=== PATIENT | male | born 1965 | race Caucasian/White ===

== ENCOUNTER 2017-11-02 11:06 | Emergency (ER) | payer OTHER ==
[2017-11-02] MEDS ORDERED: KETOROLAC 30 MG/ML INJ ONE (12:32)
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
--- NOTE | 2017-11-02 13:05 | EDPHYS ---
Physician Documentation [facility] Name: Michael Soria Age: 52 yrs Sex: Male : 1965 Arrival Date: 11/02/2017 Time: 11:12 Bed 12 Private MD: None, None ED Physician Salinas Bowman HPI: 11/02 12:12 This 52 yrs old Male presents to ER via Ambulatory with complaints of Rib snw Pain. 12:12 Onset: The symptoms/episode began/occurred suddenly, 3 week(s) ago, and became snw persistent. Associated signs and symptoms: Pertinent positives: chest pain. The patient has not experienced similar symptoms in the past. pt seen one day post injury at [facility]. Given Trammadol/Incentive spirometer. Pt states x-rays were negative. States he is out of pain medications. Historical: - Allergies: 11:15 No Known Allergies; aa5 - PMHx: 11:15 None; aa5 - PSHx: 11:15 Brain tumor removed; aa5 - Immunization history:: Adult Immunizations unknown. - Social history:: Smoking status: Patient/guardian denies using tobacco. - Ebola Screening: : No symptoms or risks identified at this time. ROS: 12:12 Constitutional: Negative for fever, chills, and weight loss, Eyes: Negative for injury, snw pain, redness, and discharge, ENT: Negative for injury, pain, and discharge, Neck: Negative for injury, pain, and swelling, Cardiovascular: Negative for chest pain, palpitations, and edema, Abdomen/GI: Negative for abdominal pain, nausea, vomiting, diarrhea, and constipation, Back: Negative for injury and pain, : Negative for injury, bleeding, discharge, and swelling, MS/Extremity: Negative for injury and deformity, Skin: Negative for injury, rash, and discoloration, Neuro: Negative for headache, weakness, numbness, tingling, and seizure. 12:12 Respiratory: Positive for pleurisy, of the right lateral posterior chest. Exam: 12:11 Constitutional: This is a well developed, well nourished patient who is awake, alert, snw and in no acute distress. Head/Face: Normocephalic, atraumatic. Eyes: Pupils equal round and reactive to light, extra-ocular motions intact. Lids and lashes normal. Conjunctiva and sclera are non-icteric and not injected. Cornea within normal limits. Periorbital areas with no swelling, redness, or edema. ENT: Nares patent. No nasal discharge, no septal abnormalities noted. Tympanic membranes are normal and external auditory canals are clear. Oropharynx with no redness, swelling, or masses, exudates, or evidence of obstruction, uvula midline. Mucous membranes moist. Neck: Trachea midline, no thyromegaly or masses palpated, and no cervical lymphadenopathy. Supple, full range of motion without nuchal rigidity, or vertebral point tenderness. No Meningismus. Cardiovascular: Regular rate and rhythm with a normal S1 and S2. No gallops, murmurs, or rubs. Normal PMI, no JVD. No pulse deficits. Respiratory: Lungs have equal breath sounds bilaterally, clear to auscultation and percussion. No rales, rhonchi or wheezes noted. No increased work of breathing, no retractions or nasal flaring. Abdomen/GI: Soft, non-tender, with normal bowel sounds. No distension or tympany. No guarding or rebound. No evidence of tenderness throughout. Back: No spinal tenderness. No costovertebral tenderness. Full range of motion. Skin: Warm, dry with normal turgor. Normal color with no rashes, no lesions, and no evidence of cellulitis. MS/ Extremity: Pulses equal, no cyanosis. Neurovascular intact. Full, normal range of motion. Neuro: Awake and alert, GCS 15, oriented to person, place, time, and situation. Cranial nerves II-XII grossly intact. Motor strength 5/5 in all extremities. Sensory grossly intact. Cerebellar exam normal. Normal gait. Psych: Awake, alert, with orientation to person, place and time. Behavior, mood, and affect are within normal limits. 12:11 Chest/axilla: Inspection: normal, Palpation: crepitus, is not appreciated, tenderness, that is moderate, of the right lateral posterior chest. Vital Signs: 11:15 BP 128 / 86; Pulse 75; Resp 16 S; Temp 99.0(TE); Pulse Ox 100% on R/A; Weight 68.04 kg aa5 (R); Height 5 ft. 6 in. (167.64 cm) (R); Pain 2/10; 11:15 Body Mass Index 24.21 (68.04 kg, 167.64 cm) aa5 MDM: 11:42 Patient medically screened. snw 13:05 Data reviewed: vital signs, nurses notes. Data interpreted: Pulse oximetry: on room air snw is 100 %. Interpretation: normal. Counseling: I had a detailed discussion with the patient and/or guardian regarding: the historical points, exam findings, and any diagnostic results supporting the discharge/admit diagnosis, the presence of at least one elevated blood pressure reading (>120/80) during this emergency department visit, radiology results, the need for outpatient follow up, for definitive care, to return to the emergency department if symptoms worsen or persist or if there are any questions or concerns that arise at home. Special discussion: Based on the history and exam findings, there is no indication for further emergent testing or inpatient evaluation. I discussed with the patient/guardian the need to see the primary care provider for further evaluation of the symptoms. 11/02 11:43 Order name: Chest Pa And Lat (2 Views) XRAY; Complete Time: 13:11 snw Administered Medications: 12:32 Drug: TORadol 60 mg Route: IM; Site: right gluteus; dm5 Disposition: 11/03 12:05 Co-signature as Attending Physician, Salinas Bowman MD I agree with the assessment and damaris plan of care. Disposition: 11/02/17 13:04 Discharged to Home. Impression: Contusion of right back wall of thorax. - Condition is Stable. - Discharge Instructions: Rib Contusion. - Prescriptions for Ultram 50 mg Oral Tablet - take 1 tablet by ORAL route every 8 hours As needed; 15 tablet. - Medication Reconciliation Form, Thank You Letter, Antibiotic Education, Prescription Opioid Use form. - Follow up: Emergency Department; When: 2 - 3 days; Reason: Recheck today's complaints, Continuance of care, Re-evaluation by your physician. Follow up: Private Physician; When: 2 - 3 days; Reason: Recheck today's complaints, Continuance of care, Re-evaluation by your physician. Signatures: Dispatcher [employer] Jania Campbell, RN RN dm5 Salinas Bowman MD MD cha Therrien, Shelly, RESIDENT CARE AIDE-C RESIDENT CARE AIDE-Csnw Ping Fiore, RN RN aa5 Corrections: (The following items were deleted from the chart) 11/02 13:25 13:04 11/02/2017 13:04 Discharged to Home. Impression: Contusion of right back wall of dm5 thorax. Condition is Stable. Forms are Medication Reconciliation Form, Thank You Letter, Antibiotic Education, Prescription Opioid Use. Follow up: Emergency Department; When: 2 - 3 days; Reason: Recheck today's complaints, Continuance of care, Re-evaluation by your physician. Follow up: Private Physician; When: 2 - 3 days; Reason: Recheck today's complaints, Continuance of care, Re-evaluation by your physician. snw
--- NOTE | 2017-11-02 13:08 | RAD REPORT ---
EXAM DESCRIPTION: Esequiel Garcia (2 Views)11/02/2017 1:02 pm CLINICAL HISTORY: Chest pain COMPARISON: 2012 FINDINGS: The lungs appear clear of acute infiltrate. The heart is normal size IMPRESSION: No acute abnormalities displayed
[2017-11-02 14:36] VITALS: BP 128/86; TEMP 99; O2SAT 100
== END 2017-11-02 13:25 | disposition home or self-care (01) ==
LOC: ER 11:06
DX: S20.221A Contusion of right back wall of thorax, initial encounter (principal); X58.XXXA Exposure to other specified factors, initial encounter; Y93.9 Activity, unspecified; Y92.89 Other specified places as the place of occurrence of the external cause
CPT/HCPCS: 71046; 96372; 99283

== ENCOUNTER 2019-12-31 13:51 | Emergency (ER) | payer OTHER ==
--- OUTSIDE RECORDS SUMMARY | 2019-12-31 13:53 | XMS REPORT | Continuity of Care Document ---
:1965 Author Organization [facility] Care Team Providers Name Role Phone [facility] Unavailable Un available Problems Problem Status Onset Classification Date Comments Sourc e Date Reported Major depressive Active Problem 02/27/2018 eC W: disorder, single Srinivas twood episode, unspecified Primary Care Primary insomnia Active Problem 02/27/2018 eC W: [facility] Glioblastoma Active Problem 02/27/2018 eCW: multiforme [facility] Multiple falls Active Problem 02/27/2018 eCW: [facility] Other chronic pain Active Problem 02/27/2018 eCW: [facility] Low back pain Active Problem 02/27/2018 eCW: [facility] Chronic pain syndrome Active Problem 02/27/2018 eCW: [facility] Chronic insomnia Active Problem 02/27/2018 eC W: [facility] Psychophysiological Active Problem 02/27/2018 eCW: insomnia [facility] Bipolar depression Active Problem 02/27/2018 eCW: [facility] B12 deficiency Active Problem 02/27/2018 eCW: [facility] Moderate major Active Problem 02/27/2018 eCW: depression [facility] Chronic fatigue Active Problem 02/27/2018 eCW : [facility] DDD (degenerative disc Active Problem 02/27/2018 eCW: disease), cervical [facility] Primary [facility] [place] Medications Medication Details Route Status Patient Ordering Order Source Instructions Provider Date meloxicam 1 tab(s) orally Active 15 mg orally [place] eCW: once a day 018 [facility] Sertraline 3 tab(s) orally Active 50 mg orally [place] eCW: Hydrochloride once a day 018 [facility] aripiprazole 1 tab(s) orally Active 5 mg orally [place] eCW: once a day 018 [facility] Abilify 1 tab(s) orally Active 5 mg orally [place] eCW: once a day 017 [facility] Sertraline 1 tab orally Active 100 mg orally [place] eCW: Hydrochloride once a day 017 [facility] d Primary [facility] [place] tramadol 2 tab orally Active 50 mg orally [place] eCW: BID [place] Primary [facility] [place] trazodone 1 tab(s) orally Active 50 mg orally [place] eCW: once at night [facility] Allergies, Adverse Reactions, Alerts Substance Category Reaction Severity Reaction Status Date Comments S ource type Reported Cymbalta Adverse stomach Adverse Active eCW: Reaction upset Reaction 8 [facility] aripiprazole Adverse dizziness Adverse Active eCW: Reaction Reaction 8 [facility] Primary [facility] Immunizations No Data Provided for This Section Results No Data Provided for This Section Pathology Reports No Data Provided for This Section Diagnostic Reports No Data Provided for This Section Consultation Notes No Data Provided for This Section Discharge Summaries No Data Provided for This Section History and Physicals No Data Provided for This Section Vital Signs Vital Sign Value Date Comments Source Systolic (mm Hg) 120 07/31/2017 eCW: [facility] Heart Rate 72 07/31/2017 eCW: [place] [facility] Temperature Oral (F) 98.7 F 07/31/2017 eCW: [facility] Weight 145.4 07/31/2017 eCW: [place] [facility] Height 66 07/31/2017 eCW: [place] [facility] Diastolic (mm Hg) 87 07/31/2017 eCW: [facility] Systolic (mm Hg) 124 07/01/2017 eCW: [facility] Heart Rate 70 07/01/2017 eCW: [place] [facility] Temperature Oral (F) 98.5 F 07/01/2017 eCW: [facility] Weight 149.1 07/01/2017 eCW: [place] [facility] Height 66 07/01/2017 eCW: [place] [facility] Diastolic (mm Hg) 88 07/01/2017 eCW: [facility] Systolic (mm Hg) 123 04/01/2017 eCW: [facility] Primary Care Heart Rate 71 04/01/2017 eCW: [place] [facility] Temperature Oral (F) 98.3 F 04/01/2017 eCW: [facility] Primary Care Weight 155.8 04/01/2017 eCW: [place] [facility] Height 66 04/01/2017 eCW: [facility] Diastolic (mm Hg) 83 04/01/2017 eCW: [facility] Encounters No Data Provided for This Section Procedures No Data Provided for This Section Assessment and Plan No Data Provided for This Section Plan of Care No Data Provided for This Section Social History No Data Provided for This Section Family History No Data Provided for This Section Advance Directives No Data Provided for This Section Functional Status No Data Provided for This Section
--- OUTSIDE RECORDS SUMMARY | 2019-12-31 13:53 | XMS REPORT | Continuity of Care Document ---
:1965 Author Organization [facility] t Address [address] [place] [address] Care Team Providers Name Role Phone 1, Lab Attending Clinician Unavailable Problems Condition Condition Condition Status Onset Resolution Last Treating Co mments Source Name Details Category Date Date Treatment Clinician Date Major Problem Active 2018-02-27 Memor ia depressive 03:45:52 l disorder, Major Clay n single depressive episode, disorder, unspecifie single d episode, unspecifie d Active Problem 02/27/2018 eCW: [facility] Primary Problem Active 2018-02-27 Nikhil julian insomnia 03:45:52 l Primary [place] insomnia Active Problem 02/27/2018 eCW: [facility] Glioblasto Problem Active 2018-02-27 M alyssa ma 03:45:52 l multiforme [place] [facility] Glioblasto ma multiforme Active Problem 02/27/2018 eCW: [facility] Multiple Problem Active 2018-02-27 Mem oria falls 03:45:52 l Multiple [place] n falls Active Problem 02/27/2018 eCW: [facility] Other Problem Active 2018-02-27 Memor ia chronic 03:45:52 l pain Other [facility] chronic pain Active Problem 02/27/2018 eCW: [facility] Low back Problem Active 2018-02-27 Mem oria pain 03:45:52 l Low back Clay n pain Active Problem 02/27/2018 eCW: [facility] Chronic Problem Active 2018-02-27 Nikhil julian pain 03:45:52 l syndrome Chronic Radha nn pain syndrome Active Problem 02/27/2018 eCW: [facility] Chronic Problem Active 2018-02-27 Nikhil julian insomnia 03:45:52 l Chronic J[place] insomnia Active Problem 02/27/2018 eCW: [facility] Bipolar Problem Active 2018-02-27 Nikhil julian depression 03:45:52 l Bipolar [place] depression Active Problem 02/27/2018 eCW: [facility] B12 Problem Active 2018-02-27 Memor ia deficiency 03:45:52 l B12 [place] deficiency Active Problem 02/27/2018 eCW: [facility] Moderate Problem Active 2018-02-27 Mem oria major 03:45:52 l depression Moderate [place] major depression Active Problem 02/27/2018 eCW: [facility] Chronic Problem Active 2018-02-27 Nikhil julian fatigue 03:45:52 l Chronic [place] fatigue Active Problem 02/27/2018 eCW: [facility] DDD Problem Active 2018-02-27 Memor ia (degenerat 03:45:52 l reynaldo disc DDD Jaren disease), (degenerat cervical reynaldo disc disease), cervical Active Problem 02/27/2018 eCW: [facility] Allergies, Adverse Reactions, Alerts Allergy Allergy Status Severity Reaction(s) Onset Inactive Treating Comm ents Source Name Type Date Date Clinician aripipra aripipra Active dizziness Mem oria zole zole 5-25 l 00:00: Medications Ordered Filled Start Stop Current Ordering Indication Dosage Frequency Signature Comments Components Source Medication Medication Date Date Medication? Clinician (SIG) Name Name tramadol 2017- Yes [facility] 2 tab Mem oria 2-22 Dyhianto l 03:45: 52 meloxicam 2018-0 Yes Mu-Ism 1 tab(s) Memoria 5-25 Dyhianto l 00:00: Sertraline 2018-0 Yes Mu-Ism 3 tab(s) Memoria Hydrochlori 5-25 Dyhianto l de 00:00: trazodone 2018-0 Yes Mu-Ism 1 tab(s) Memoria 4-27 Dyhianto l 02:48: 21 aripiprazol 2018-0 Yes Mu-Ism 1 tab(s) Memoria e 4-25 Dyhianto l 00:00: Abilify 2016-1 Yes Mu-Ism 1 tab(s) M emoria 0-25 [place]hi[place] l 00:00: Sertraline 2017-0 Yes Mu-Ism 1 tab M emoria Hydrochlori 10-10 Dyhianto l de 00:00: [place] 00 Vital Signs Vital Name Observation Time Observation Value Comments Source Systolic (mm Hg) 2017-07-31 18:00:00 Nikhil rial [facility] Heart Rate 2017-07-31 18:00:00 [facility] [place] Temperature Oral (F) 2017-07-31 18:00:00 98.7 F [facility] [place] Weight 2017-07-31 18:00:00 [facility] [place] Height 2017-07-31 18:00:00 [facility] [place] Diastolic (mm Hg) 2017-07-31 18:00:00 Mem orial [place] Systolic (mm Hg) 2017-07-01 18:00:00 Nikhil rial [facility] Heart Rate 2017-07-01 18:00:00 [facility] [place] Temperature Oral (F) 2017-07-01 18:00:00 98.5 F [facility] [place] Weight 2017-07-01 18:00:00 [facility] Height 2017-07-01 18:00:00 [facility] [place] Diastolic (mm Hg) 2017-07-01 18:00:00 Mem orial [facility] Systolic (mm Hg) 2017-04-01 19:15:00 Nikhil rial [place] Heart Rate 2017-04-01 19:15:00 [facility] [place] Temperature Oral (F) 2017-04-01 19:15:00 98.3 F [facility] Weight 2017-04-01 19:15:00 [facility] [place] Height 2017-04-01 19:15:00 [facility] [place] Diastolic (mm Hg) 2017-04-01 19:15:00 Mem orial [facility] Procedures This patient has no known procedures. Encounters Start End Encounter Admission Attending Care Care Encounter Source Date/Time Date/Time Type Type Clinicians Facility Department ID 2018-10-21 2018-10-21 Regulatory Associate 1, Adc Lab [facility] [id number] 09:23:08 09:38:08 Visit Joann [id number] Anton[place] [id number] [place] [id number] 2018-08-22 2018-08-22 Emergency E [facility] [id number] MHTW 22:37:00 22:37:00 2018-02-26 2018-02-26 [facility] [id number] [facility] 08:30:00 08:30:00 [facility] Medicine 2017-09-01 2017-09-01 Out[facility] [id number] [facility] 10:55:00 10:55:00 [facility] Medicine 2017-08-19 2017-08-19 Out[facility] [id number] [facility] 13:21:00 13:21:00 [facility] Medicine 2017-08-19 2017-08-19 Out[facility] [id number] [facility] 12:09:00 12:09:00 [facility] Medicine 2017-08-19 2017-08-19 Out[facility] [id number] [facility] 12:09:00 12:09:00 [facility] Medicine 2017-07-31 2017-07-31 Outpatient [id number] eClinic 13:33:00 13:33:00 [id number] [facility] [id number] 2017-07-31 2017-07-31 Out[facility] [id number] [facility] 13:00:00 13:00:00 [facility] Medicine 2017-07-17 2017-07-17 Outpatient [facility] [id number] [facility] 11:55:00 11:55:00 [facility] Medicine 2017-07-07 2017-07-07 Out[facility] [id number] [facility] 14:23:00 14:23:00 [facility] Medicine 2017-07-04 2017-07-04 Outpatient [facility] [id number] [facility] 13:58:00 13:58:00 [facility] Medicine 2017-07-01 2017-07-01 Out[facility] [id number] [facility] 13:00:00 13:00:00 [facility] Medicine 2017-06-03 2017-06-03 Outpatient [id number] eClinic 13:22:00 13:22:00 [id number] [facility] [id number] 2017-04-01 2017-04-01 Outpatient Melissa Torres [id number] eClinic 13:15:00 13:15:00 [facility] Medicine Results Test Description Test Time Test Comments Results Result [facility] e Comments MRI BRAIN WO/W CLINICAL INDICATION: C71.9 Malignant neoplasm of brain, unspecified, 784.0 headacheMODALITY: Avanto 1.5 Codie 18 channel MRITECHNIQUE: Multiplanar SE, FSE and inversion recovery pulse sequences of the brain were performed without contrast enhancement. Diffusion weighted imaging was utilized. IV contrast, 14 ml gadolinium are injected IV and post-contrast T1 axial and coronal images obtained.IMPRESSION:1. Postoperative encephalomalacia is seen in the anterior right parietal lobe underlying old right craniotomy site. No definite evidence of recurrent or residual neoplasm. Comparison with prior studies, especially postoperative studies, would be useful.2. 8 mm rounded focus of encephalomalacia adjacent to the splenium of the corpus callosum on the right, probably reflecting old ischemia/treatment change.3. Generalized increased signal intensity in right periventricular distribution and in right frontal parietal deep white matter, presumably post-treatment change.FINDINGS:COMPARI SON: noneThere is postoperative encephalomalacia in the anterior right parietal lobe. There has been a right frontal parietal craniotomy with anatomic replacement of bone flap. Mild dural thickening is seen at the site of prior surgery without associated nodularity. Postoperative etiology is considered most likely for the dural thickening. Intracranially, there is a 2.7 x 1.5 cm cavity of encephalomalacia in the anterior right parietal lobe at the site of surgical neoplasm resection. There is no nodularity or pathologic enhancement in this region to suggest recurrent/residual tumor. There is an unrelated 8 mm focus of encephalomalacia in the right occipital region near the splenium of the right corpus callosum which probably reflects old ischemia. No pathologic enhancement is seen in this region. Diffuse increased signal in the right frontal and parietal deep white matter is seen, likely reflecting post-treatment change. There is also some mild superimposed increased signal in the parietal white matter of the left hemisphere which may reflect chronic ischemic change or post-treatment change.There are no acute infarcts or hemorrhages. There is no acute restriction on diffusion sequences.There is no hydrocephalous. There is mild compensatory dilatation of the right lateral ventricular body due to postsurgical change.Sella and parasellar structures are intact.The craniocervical junction is normal without mass or Chiari malformation.The brainstem, midbrain and cerebellum are normal. Bilateral internal auditory canals are normal and symmetric.Normal flow voids are seen intracranially in carotid and vertebrobasilar arteries. The dural venous sinuses are patent.There is mild mucosal thickening in the sphenoid sinus. The remainder of sinuses are clear. Mastoid air cells are clear.Results were discussed with Dr. Villaseñor by Dr. Tolentino.
[2019-12-31] MEDS ORDERED: NA CHLORIDE 0.9% 1,000 ML ONE (14:38)
[2019-12-31] MEDS ORDERED: MORPHINE 2 MG/ML SYR ONE ×2 (14:38→14:47)
[2019-12-31 14:45] LABS: Basophils % 0.8 % (0-1.3); Lymphocytes % 17.6 % (15.3-44.8); RBC Red Blood Cell Count 4.73 M/uL (4.33-5.43)
[2019-12-31 14:46] LABS: Albumin 3.5 g/dL (3.4-5.0); Bilirubin Direct 0.1 mg/dL (0-0.2); Bilirubin Total 0.4 mg/dL (0.2-1.0); Potassium 4.1 mmol/L (3.5-5.1); Protein, Total 7.2 g/dL (6.4-8.2)
[2019-12-31 15:22] LABS: Urine Blood NEGATIVE (NEG); Urine Glucose NEGATIVE (NEG); Urine Protein NEGATIVE (NEG)
[2019-12-31 15:24] LABS: Urine Bacteria NONE SEEN /HPF (NONE SEEN); Urine Culture Reflex Order NOT NEEDED; Urine RBC NONE SEEN /HPF (NONE SEEN)
--- NOTE | 2019-12-31 16:29 | RAD REPORT ---
EXAM DESCRIPTION: CTAbdomen Pelvis W Contrast - 12/31/2019 4:18 pm CLINICAL HISTORY: Abdominal pain. ABD PAIN COMPARISON: No comparisons TECHNIQUE: Biphasic CT imaging of the abdomen and pelvis was performed with 100 ml non-ionic IV cont rast. All CT scans are performed using dose optimization technique as appropriate and may include automated exposure control or mA/KV adjustment according to patient size. FINDINGS: The lung bases are clear.Small hiatal hernia. The liver, spleen, pancreas, adrenal glands and kidneys are within normal limits. No bowel obstruction, free air, free fluid or abscess. The appendix is normal. No evidence of signi ficant lymphadenopathy. No suspicious bony findings. IMPRESSION: No acute intra-abdominal or pelvic finding.
--- NOTE | 2019-12-31 16:46 | EDPHYS ---
Physician Documentation [facility] Name: Michael Soria Age: 54 yrs Sex: Male : 1965 Arrival Date: 12/31/2019 Time: 13:54 Bed 15 Private MD: ED Physician Robbin Farias HPI: 12/30 14:15 This 54 yrs old Male presents to ER via Ambulatory with complaints of cp Abdominal Pain. 14:15 The patient presents with abdominal pain mid abdomen. cp 14:15 Onset: The symptoms/episode began/occurred for years. cp 14:15 The symptoms do not radiate. Associated signs and symptoms: Pertinent positives: cp nausea, Pertinent negatives: anorexia, blood in stools, constipation, diarrhea, dysuria, fever, shortness of breath, testicular pain, vomiting. The symptoms are described as crampy. Historical: - Allergies: 13:57 No Known Allergies; sv - PMHx: 13:57 Hypertension; GERD; sv - PSHx: 13:57 Brain tumor removed; sv - Immunization history:: Flu vaccine is not up to date. - Social history:: Smoking status: Reported history of juuling and/or vaping. ROS: 14:20 Eyes: Negative for injury, pain, redness, and discharge. cp 14:20 Constitutional: Negative for body aches, chills, fever, poor PO intake. 14:20 Cardiovascular: Negative for chest pain, edema, palpitations. 14:20 Respiratory: Negative for cough, shortness of breath, wheezing. 14:20 Abdomen/GI: Positive for abdominal pain, nausea, abdominal distension, Negative for vomiting, diarrhea, constipation, anorexia, black/tarry stool, rectal bleeding. 14:20 Back: Negative for radiated pain. 14:20 Neuro: Negative for weakness. 14:20 All other systems are negative. cp Exam: 14:30 Constitutional: The patient appears in no acute distress, alert, awake, cp non-diaphoretic, non-toxic, well developed, well nourished, uncomfortable. 14:30 Head/Face: Normocephalic, atraumatic. cp 14:30 Eyes: Periorbital structures: appear normal, Conjunctiva: normal, no exudate, no injection, Sclera: no appreciated abnormality, Lids and lashes: appear normal, bilaterally. 14:30 ENT: External ear(s): are unremarkable, Nose: is normal, Mouth: Lips: moist, Oral mucosa: moist, Posterior pharynx: Airway: no evidence of obstruction, patent. 14:30 Chest/axilla: Inspection: normal, Palpation: is normal, no crepitus, no tenderness. 14:30 Cardiovascular: Rate: normal, Rhythm: regular, Edema: is not appreciated, JVD: is not appreciated. 14:30 Respiratory: the patient does not display signs of respiratory distress, Respirations: normal, no use of accessory muscles, no retractions, labored breathing, is not present, Breath sounds: are clear throughout, no decreased breath sounds, no stridor, no wheezing. 14:30 Abdomen/GI: Inspection: distension, that is mild, in the abdomen diffusely, Bowel sounds: active, all quadrants, Palpation: soft, in all quadrants, moderate abdominal tenderness, in all quadrants, rebound tenderness, is not appreciated. 14:30 Back: pain, is absent, ROM is normal. Vital Signs: 13:57 BP 152 / 98; Pulse 76; Resp 22; Temp 98.7; Pulse Ox 100% ; Weight 72.57 kg; Height 5 sv ft. 6 in. (167.64 cm); 15:31 BP 140 / 89; Pulse 63; Resp 18; Pulse Ox 100% ; Pain 4/10; ll1 17:36 BP 138 / 95; Pulse 70; Resp 17; Pulse Ox 100% ; Pain 2/10; ll1 13:57 Body Mass Index 25.82 (72.57 kg, 167.64 cm) sv MDM: 14:04 Patient medically screened. cp 14:30 Differential diagnosis: appendicitis, bowel obstruction, cholecystitis, Cholelithiasis, cp diverticulitis, non-specific abd pain, pancreatitis, Ureterolithiasis, urinary tract infection. 16:44 Data reviewed: vital signs, nurses notes, lab test result(s), radiologic studies, CT cp scan. 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 Response to treatment: the patient's symptoms have markedly improved after treatment. Special discussion: Based on the patient's Hx, exam, and Dx evaluation, there is no indication for emergent surgery or inpatient Tx. It is understood by the patient/guardian that if the Sx's persist or worsen they need to return immediately for re-evaluation. 12/30 14:08 Order name: Basic Metabolic Panel; Complete Time: 15:01 cp 12/30 15:01 Interpretation: Normal except: GFR 69; CA 8.3. cp 12/30 14:08 Order name: CBC with Diff; Complete Time: 15: cp 12/30 15:01 Interpretation: Reviewed. cp 12/30 14:08 Order name: Hepatic Function; Complete Time: 15:01 cp 12/30 16:41 Interpretation: Normal except: GLOB 3.7; A/G 0.9. cp 12/30 14:08 Order name: Lipase; Complete Time: 15:01 cp 12/30 14:08 Order name: Urine Microscopic Only; Complete Time: 16:40 cp 12/30 15:17 Order name: Urine Dipstick--Ancillary (enter results); Complete Time: 16:40 eb 12/30 14:08 Order name: IV Saline Lock; Complete Time: 14:10 cp 12/30 14:08 Order name: Labs collected and sent; Complete Time: 14:10 cp 12/30 14:08 Order name: Urine Dipstick-Ancillary (obtain specimen); Complete Time: 15:30 cp 12/30 14:08 Order name: CT Abd/Pelvis - PO and IV Contrast; Complete Time: 16:40 cp Administered Medications: 14:29 Drug: NS 0.9% 1000 ml Route: IV; Rate: 1 bolus; Site: right antecubital; ll1 17:36 Follow up: Response: No adverse reaction; RASS: Alert and Calm (0); IV Status: ll1 Completed infusion; IV Intake: 1000ml 14:29 Drug: morphine 2 mg Route: IVP; Site: right antecubital; ll1 14:30 Drug: morphine 2 mg Route: IVP; Site: right antecubital; ll1 15:29 Follow up: Response: No adverse reaction; RASS: Alert and Calm (0) ll1 15:30 Follow up: Response: No adverse reaction; Pain is decreased; RASS: Alert and Calm (0) ll1 Disposition: 12/31 07:31 Co-signature as Attending Physician, Robbin Farias MD. rn Disposition: 12/31/19 16:45 Discharged to Home. Impression: Unspecified abdominal pain. - Condition is Stable. - Discharge Instructions: Abdominal Pain, Adult. - Prescriptions for Bentyl 20 mg Oral Tablet - take 2 tablets by ORAL route every 6 hours As needed; 30 tablet. Zofran 4 mg Oral Tablet - take 1 tablet by ORAL route every 12 hours As needed; 20 tablet. - Medication Reconciliation Form, Thank You Letter, Antibiotic Education, Prescription Opioid Use form. - Follow up: Rolando Lovett MD; When: 2 - 3 days; Reason: Recheck today's complaints. - Problem is an ongoing problem. - Symptoms have improved. Signatures: Dispatcher [employer] Parisa Roger RN RN Robbin Nassar MD MD rn Salinas Obregon PA PA cp Lewis, Lynsay, RN RN ll1 Corrections: (The following items were deleted from the chart) 12/30 15:01 15:01 Normal except: GFR 69. cp cp 17:39 16:45 12/31/2019 16:45 Discharged to Home. Impression: Unspecified abdominal pain. ll1 Condition is Stable. Forms are Medication Reconciliation Form, Thank You Letter, Antibiotic Education, Prescription Opioid Use. Follow up: Rolando Lovett; When: 2 - 3 days; Reason: Recheck today's complaints. Problem is an ongoing problem. Symptoms have improved. cp 23:19 12/29 14:20 Constitutional: Negative for body aches, chills, fever, poor PO intake, cp cp 12/30 23:19 12/29 14:20 Cardiovascular: Negative for chest pain, edema, palpitations, cp cp 12/30 23:19 12/29 14:20 Respiratory: Negative for cough, shortness of breath, wheezing, cp cp 12/30 23:19 12/29 14:20 Abdomen/GI: Positive for abdominal pain, nausea, abdominal distension, cp Negative for vomiting, diarrhea, constipation, anorexia, black/tarry stool, rectal bleeding, cp 12/30 23:19 12/29 14:20 Back: Negative for radiated pain, cp cp 12/30 23:19 12/29 14:20 Eyes: Negative for injury, pain, redness, and discharge, cp cp 12/30 23:19 12/29 14:20 Neuro: Negative for weakness, cp cp 12/30 23:12/29 14:20 All other systems are negative, cp cp
--- NOTE | 2019-12-31 16:46 | ER ---
Nurse's Notes [facility] Name: Michael Soria Age: 54 yrs Sex: Male : 1965 Arrival Date: 12/31/2019 Time: 13:54 Bed 15 Private MD: Diagnosis: Unspecified abdominal pain Presentation: 12/30 13:56 Chief complaint: Patient states: mid abd pain x years but has recently increased. c/o sv nausea, denies vomiting. Coronavirus screen: Client denies travel out of the [place] in the last 14 days. At this time, the client does not indicate any symptoms associated with coronavirus-19. Ebola Screen: No symptoms or risks identified at this time. Risk Assessment: Do you want to hurt yourself or someone else? Patient reports no desire to harm self or others. Onset of symptoms is unknown. 13:56 Method Of Arrival: Ambulatory sv 13:56 Acuity: NANCY 3 sv 13:57 Initial Sepsis Screen: Does the patient meet any 2 criteria? RR > 20 per min. No. sv Patient's initial sepsis screen is negative. Does the patient have a suspected source of infection? No. Patient's initial sepsis screen is negative. Historical: - Allergies: 13:57 No Known Allergies; sv - PMHx: 13:57 Hypertension; GERD; sv - PSHx: 13:57 Brain tumor removed; sv - Immunization history:: Flu vaccine is not up to date. - Social history:: Smoking status: Reported history of juuling and/or vaping. Screenin:37 Abuse screen: Denies threats or abuse. Nutritional screening: No deficits noted. ll1 Tuberculosis screening: No symptoms or risk factors identified. Fall Risk IV access (20 points). Total Gonzalez Fall Scale indicates No Risk (0-24 pts). Assessment: 14:10 General: Appears uncomfortable, Behavior is calm, cooperative. Pain: Complains of pain ll1 in abdomen diffusely Pain currently is 8 out of 10 on a pain scale. Quality of pain is described as aching. Neuro: No deficits noted. Cardiovascular: No deficits noted. Respiratory: No deficits noted. GI: Abdomen is round Bowel sounds present X 4 quads. Abd is soft Abdomen is tender to palpation X 4 quads. Reports lower abdominal pain, upper abdominal pain, nausea. 15:10 Reassessment: Patient and/or family updated on plan of care and expected duration. Pain ll1 level reassessed. Patient is alert, oriented x 3, equal unlabored respirations, skin warm/dry/pink. 16:10 Reassessment: Patient and/or family updated on plan of care and expected duration. Pain ll1 level reassessed. Patient is alert, oriented x 3, equal unlabored respirations, skin warm/dry/pink. 17:10 Reassessment: Patient and/or family updated on plan of care and expected duration. Pain ll1 level reassessed. Patient is alert, oriented x 3, equal unlabored respirations, skin warm/dry/pink. Vital Signs: 13:57 BP 152 / 98; Pulse 76; Resp 22; Temp 98.7; Pulse Ox 100% ; Weight 72.57 kg; Height 5 sv ft. 6 in. (167.64 cm); 15:31 BP 140 / 89; Pulse 63; Resp 18; Pulse Ox 100% ; Pain 4/10; ll1 17:36 BP 138 / 95; Pulse 70; Resp 17; Pulse Ox 100% ; Pain 2/10; ll1 13:57 Body Mass Index 25.82 (72.57 kg, 167.64 cm) sv ED Course: 13:54 Patient arrived in ED. mr 13:56 Triage completed. sv 13:56 Arm band placed on. sv 13:59 Salinas Obregon PA is PHCP. cp 13:59 Robbin Farias MD is Attending Physician. cp 14:02 Funmilayo Robert, ASIM is Primary Nurse. ll1 14:25 Inserted saline lock: 20 gauge in right antecubital area, using aseptic technique. ll1 Blood collected. 16:18 CT Abd/Pelvis - PO and IV Contrast In Process Unspecified. EDMS 16:45 Rolando Lovett MD is Referral Physician. cp 17:34 IV discontinued, intact, bleeding controlled, No redness/swelling at site. Pressure ll1 dressing applied. 17:37 No provider procedures requiring assistance completed. ll1 17:38 Patient has correct armband on for positive identification. Bed in low position. Call ll1 light in reach. Side rails up X 1. Administered Medications: 14:29 Drug: NS 0.9% 1000 ml Route: IV; Rate: 1 bolus; Site: right antecubital; ll1 17:36 Follow up: Response: No adverse reaction; RASS: Alert and Calm (0); IV Status: ll1 Completed infusion; IV Intake: 1000ml 14:29 Drug: morphine 2 mg Route: IVP; Site: right antecubital; ll1 14:30 Drug: morphine 2 mg Route: IVP; Site: right antecubital; ll1 15:29 Follow up: Response: No adverse reaction; RASS: Alert and Calm (0) ll1 15:30 Follow up: Response: No adverse reaction; Pain is decreased; RASS: Alert and Calm (0) ll1 Intake: 17:36 IV: 1000ml; Total: 1000ml. ll1 Outcome: 16:45 Discharge ordered by MD. ten 17:37 Discharged to home ambulatory. ll1 17:37 Condition: stable 17:37 Discharge instructions given to patient, Instructed on discharge instructions, follow up and referral plans. medication usage, Demonstrated understanding of instructions, follow-up care, medications, Prescriptions given X 2. 17:39 Patient left the ED. ll1 Signatures: Dispatcher [employer] EDParisa Ordaz RN RN sv Rivera, Mary mr Page, Corey, PA PA cp Lewis, Lynsay, RN RN ll1
[2019-12-31 17:47] VITALS: TEMP 98.7; O2SAT 100
[2019-12-31 17:50] VITALS: BP 138/95
== END 2019-12-31 17:39 | disposition home or self-care (01) ==
LOC: ER 13:51
DX: R10.9 Unspecified abdominal pain (principal); I10 Essential (primary) hypertension; Z87.891 Personal history of nicotine dependence
CPT/HCPCS: 96361; 85025; 80048; 36415; 80076; 83690; 74177; 96374; 99284; J2270 ×2; J7030; 81003; 81015

== ENCOUNTER 2022-04-02 13:16 | Emergency (ER) | payer OTHER ==
--- OUTSIDE RECORDS SUMMARY | 2022-04-02 13:18 | XMS REPORT | Continuity of Care Document ---
:1965 Author Organization [facility] t Address [address] [place] [address] Care Team Providers Name Role Phone Rolando Bejarano Primary Care Physician Reno Wilson MD Attending Clinician RENO WILSON Attending Clinician Unavailable RENO WILSON Attending Clinician Unavailable Doctor Unassigned, [place] Attending Clinician Unavailable Radiology Attending Clinician Unavailable RADIOLOGY Attending Clinician Unavailable ED TIJERINA Attending Clinician Unavailable Ed Tijerina DO Attending Clinician 1, Ad[facility] Attending Clinician Unavailable ED TIJERINA Admitting Clinician Unavailable Payers Payer Name Policy Type Policy Number Effective Date Expiration Date S ource Problems Condition Condition Condition Status Onset Resolution Last Treating Co mments Source Name Details Category Date Date Treatment Clinician Date No known No known Disease Unive rs active active ity of problems problems [facility] Psychophys Psychophy Problem Active 2018-02-27 Memoria iological siological 03:45:52 l insomnia insomnia Clay n Active Problem 02/27/2018 eCW: [facility] Bipolar Bipolar Problem Active 2018-02-27 Me moria depression depression 03:45:52 l Active [place] Problem 02/27/2018 eCW: [facility] B12 B12 Problem Active 2018-02-27 Memor ia deficiency deficiency 03:45:52 l Active [place] Problem 02/27/2018 eCW: [facility] Care 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 03:45:52 l depression depression He rmann Active Problem 02/27/2018 eCW: [facility] Care Chronic Chronic Problem Active 2018-02-27 Me moria fatigue fatigue 03:45:52 l Active [place] Problem 02/27/2018 eCW: [facility] DDD DDD Problem Active 2018-02-27 Memor ia (degenerat (degenerat 03:45:52 l reynaldo disc reynaldo disc Clay n disease), disease), cervical cervical Active Problem 02/27/2018 eCW: [facility] Major Major Problem Active 2018-02-27 Nikhil julian depressive depressive 03:45:52 l disorder, disorder, Herm aleksandr single single episode, episode, unspecifie unspecifie d d Active Problem 02/27/2018 eCW: [facility] Primary Primary Problem Active 2018-02-27 Me moria insomnia insomnia 03:45:52 l Active [place] Problem 02/27/2018 eCW: [facility] Care 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 Problem 02/27/2018 eCW: [facility] Multiple Multiple Problem Active 2018-02-27 Memoria falls falls 03:45:52 l Active [place] Problem 02/27/2018 eCW: [facility] Other Other Problem Active 2018-02-27 Memor ia chronic chronic 03:45:52 l pain pain [place] Active Problem 02/27/2018 eCW: [facility] Care Low back Low back Problem Active 2018-02-27 Memoria pain pain 03:45:52 l Active [place] Problem 02/27/2018 eCW: [facility] Chronic Chronic Problem Active 2018-02-27 Me moria 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 Clay n Active Problem 02/27/2018 eCW: [facility] Allergies, Adverse Reactions, Alerts Allergy Allergy Status Severity Reaction(s) Onset Inactive Treating Comm ents Source Name Type Date Date Clinician Frankmbalta Frankmbalta Active stomach Memor ia upset 5-25 l 00:00: [place] 00 NO KNOWN Drug Active Univers ALLERGIE Class ity of S [place] [facility] Social History Social Habit Start Date Stop Date Quantity Comments Source History of Smokes tobacco University of tobacco use daily [place] [facility] History SDOH University o f Alcohol Comment [place] [facility] Exposure to 2022-02-15 2022-02-25 Not sure University of SARS-CoV-2 00:00:00 15:51:00 [place] [facility] (event) [facility] Alcohol intake 2021-06-26 2021-06-26 .29 /d University of 00:00:00 00:00:00 [facility] Tobacco use and 2018-10-21 2018-10-21 User of smokeless Un iversity of exposure 00:00:00 00:00:00 tobacco [place] [facility] History [facility] 2018-10-21 2018-10-21 2 University o f Alcohol Frequency 00:00:00 00:00:00 [place] [facility] History [facility] 2018-10-21 2018-10-21 1 University o f Alcohol Std 00:00:00 00:00:00 [place] [facility] Drinks Branch History [facility] 2018-10-21 2018-10-21 99 University o f Alcohol Binge 00:00:00 00:00:00 [place] [facility] Tobacco Comment 2018-10-21 2018-10-21 VAPS Universit y of 00:00:00 00:00:00 [facility] Sex [birth year] Universit y of 00:00:00 00:00:00 [facility] Smoking Status Start Date Stop Date Source Smokes tobacco daily 2018-10-21 00:00:00 Univers ity of [facility] Medications Ordered Filled Start Stop Current Ordering Indication Dosage Frequency Signature Comments Components Source Medication Medication Date Date Medication? Clinician (SIG) Name Name diclofenac 2021-03 Yes [id number] 50mg Take 1 Univers 50 mg 2-20 tablet by ity of tablet 00:00: mouth 2 (two) Medical times Branch daily as needed for Pain (scale 4-6). diclofenac 2021-03 Yes [id number] 50mg Take 1 Univers 50 mg 2-20 tablet by ity of tablet 00:00: mouth 2 (two) Medical times Branch daily as needed for Pain (scale 4-6). zolpidem 10 2021-03 Yes TAKE Univer s mg tablet 2-14 ONE-HALF ity of 00:00: TO ONE [place] (03/10 TO ) Medical TABLET(S) Branch BY MOUTH TABLET(S) BY MOUTH DAILY AT BEDTIME. zolpidem 10 2021-03 Yes TAKE Univer s mg tablet 2-14 ONE-HALF ity of 00:00: TO ONE (1/2 TO 1) Medical TABLET(S) Branch BY MOUTH TABLET(S) BY MOUTH DAILY AT BEDTIME. meloxicam 2021-03 No 1 tablet Uni vers 15 mg 0-10 12-20 ity of tablet 00:00: 00:00 [place] 00 :00 Medical Branch meloxicam 2021-03 No 1 tablet Uni vers 15 mg 0-10 12-20 ity of tablet 00:00: 00:00 [place] 00 :00 Medical Branch gadoteridol 2021- No [id number] .2mL/kg 12.7 mL Univers (PROHANCE-1 07-03 (0.2 mL/kg i ty of 5 mL) 16:15: 16:13 ?63.5 kg), [place] injection 00 :00 Intravenou Medi sven 12.7 mL s, ONCE, 1 Branch dose, On Thu07/03/21 at 1115, Routine pantoprazol Yes Take by Uni vers e sodium 8-15 mouth. ity of (PANTOPRAZO 12:33: Indication [place] LE ORAL) 37 s: ONE Medical DAILY Q AM Branch dicyclomine Yes Take by Uni vers HCl 8-15 mouth. ity of (DICYCLOMIN 12:33: [place] E ORAL) 37 Medical Branch sertraline Yes Take by Univ ers HCl 8-15 mouth. ity of (SERTRALINE 12:33: [place] ORAL) 37 Medical Branch tramadol Yes Take by Univer s HCl 8-15 mouth. ity of (TRAMADOL 12:33: [place] ORAL) 37 Medical Branch sertraline Yes Take by Univ ers HCl 8-15 mouth. ity of (SERTRALINE 12:33: [place] ORAL) 37 Medical Branch losartan Yes 3261 Take by Univer s potassium 8-15 mouth. ity of (LOSARTAN 12:33: Indication [place] ORAL) 37 s: Medical 21-Hydroxy Branch lase Deficiency , TAKES ONE NIGHTLY pantoprazol Yes Take by Uni vers e sodium 8-15 mouth. ity of (PANTOPRAZO 12:33: Indication [place] LE ORAL) 37 s: ONE Medical DAILY Q AM Branch dicyclomine Yes Take by Uni vers HCl 8-15 mouth. ity of (DICYCLOMIN 12:33: [place] E ORAL) 37 Medical Branch losartan 0 Yes 3261 Take by Univer s potassium 8-15 mouth. ity of (LOSARTAN 12:33: Indication [place] ORAL) 37 s: Medical 21-Hydroxy Branch lase Deficiency , TAKES ONE NIGHTLY pantoprazol 0 Yes Take by Uni vers e sodium 8-15 mouth. ity of (PANTOPRAZO 12:33: Indication [place] LE ORAL) 37 s: ONE Medical DAILY Q AM Branch dicyclomine Yes Take by Uni vers HCl 8-15 mouth. ity of (DICYCLOMIN 12:33: [place] E ORAL) 37 Medical Branch tramadol Yes Take by Univer s HCl 8-15 mouth. ity of (TRAMADOL 12:33: [place] ORAL) 37 Medical Branch sertraline Yes Take by Univ ers HCl 8-15 mouth. ity of (SERTRALINE 12:33: [place] ORAL) 37 Medical Branch losartan Yes 3261 Take by Univer s potassium 8-15 mouth. ity of (LOSARTAN 12:33: Indication [place] ORAL) 37 s: Medical 21-Hydroxy Branch lase Deficiency , TAKES ONE NIGHTLY pantoprazol Yes Take by Uni vers e sodium 8-15 mouth. ity of (PANTOPRAZO 12:33: Indication [place] LE ORAL) 37 s: ONE Medical DAILY Q AM Branch dicyclomine Yes Take by Uni vers HCl 8-15 mouth. ity of (DICYCLOMIN 12:33: [place] E ORAL) 37 Medical Branch tramadol Yes Take by Univer s HCl 8-15 mouth. ity of (TRAMADOL 12:33: [place] ORAL) 37 Medical Branch sertraline Yes Take by Univ ers HCl 8-15 mouth. ity of (SERTRALINE 12:33: [place] ORAL) 37 Medical Branch losartan Yes 3261 Take by Univer s potassium 8-15 mouth. ity of (LOSARTAN 12:33: Indication [place] ORAL) 37 s: Medical 21-Hydroxy Branch lase Deficiency , TAKES ONE NIGHTLY pantoprazol 0 Yes Take by Uni vers e sodium 8-15 mouth. ity of (PANTOPRAZO 12:33: Indication [place] LE ORAL) 37 s: ONE Medical DAILY Q AM Branch dicyclomine 0 Yes Take by Uni vers HCl 8-15 mouth. ity of (DICYCLOMIN 12:33: [place] E ORAL) 37 Medical Branch tramadol Yes Take by Univer s HCl 8-15 mouth. ity of (TRAMADOL 12:33: [place] ORAL) 37 Medical Branch sertraline 0 Yes Take by Univ ers HCl 8-15 mouth. ity of (SERTRALINE 12:33: [place] ORAL) 37 Medical Branch losartan 0 Yes 3261 Take by Univer s potassium 8-15 mouth. ity of (LOSARTAN 12:33: Indication [place] ORAL) 37 s: Medical 21-Hydroxy Branch lase Deficiency , TAKES ONE NIGHTLY pantoprazol 0 Yes Take by Uni vers e sodium 8-15 mouth. ity of (PANTOPRAZO 12:33: Indication [place] LE ORAL) 37 s: ONE Medical DAILY Q AM Branch dicyclomine Yes Take by Uni vers HCl 8-15 mouth. ity of (DICYCLOMIN 12:33: [place] E ORAL) 37 Medical Branch tramadol Yes Take by Univer s HCl 8-15 mouth. ity of (TRAMADOL 12:33: [place] ORAL) 37 Medical Branch sertraline Yes Take by Univ ers HCl 8-15 mouth. ity of (SERTRALINE 12:33: [place] ORAL) 37 Medical Branch losartan 0 Yes 3261 Take by Univer s potassium 8-15 mouth. ity of (LOSARTAN 12:33: Indication [place] ORAL) 37 s: Medical 21-Hydroxy Branch lase Deficiency , TAKES ONE NIGHTLY pantoprazol 0 Yes Take by Uni vers e sodium 8-15 mouth. ity of (PANTOPRAZO 12:33: Indication [place] LE ORAL) 37 s: ONE Medical DAILY Q AM Branch dicyclomine Yes Take by Uni vers HCl 8-15 mouth. ity of (DICYCLOMIN 12:33: [place] E ORAL) 37 Medical Branch tramadol 0 Yes Take by Univer s HCl 8-15 mouth. ity of (TRAMADOL 12:33: [place] ORAL) 37 Medical Branch sertraline 0 Yes Take by Univ ers HCl 8-15 mouth. ity of (SERTRALINE 12:33: [place] ORAL) 37 Medical Branch losartan 0 Yes 3261 Take by Univer s potassium 8-15 mouth. ity of (LOSARTAN 12:33: Indication [place] ORAL) 37 s: Medical 21-Hydroxy Branch lase Deficiency , TAKES ONE NIGHTLY pantoprazol 0 Yes Take by Uni vers e sodium 8-15 mouth. ity of (PANTOPRAZO 12:33: Indication [place] LE ORAL) 37 s: ONE Medical DAILY Q AM Branch dicyclomine Yes Take by Uni vers HCl 8-15 mouth. ity of (DICYCLOMIN 12:33: [place] E ORAL) 37 Medical Branch tramadol Yes Take by Univer s HCl 8-15 mouth. ity of (TRAMADOL 12:33: [place] ORAL) 37 Medical Branch sertraline Yes Take by Univ ers HCl 8-15 mouth. ity of (SERTRALINE 12:33: [place] ORAL) 37 Medical Branch losartan Yes 3261 Take by Univer s potassium 8-15 mouth. ity of (LOSARTAN 12:33: Indication [place] ORAL) 37 s: Medical 21-Hydroxy Branch lase Deficiency , TAKES ONE NIGHTLY tramadol Yes Take by Univer s HCl 8-15 mouth. ity of (TRAMADOL 12:33: [place] ORAL) 37 Medical Branch tramadol 2017-03 Yes [place] 2 tab Mem oria 2-22 [place] 03:45: tramadol 2017-03 Yes [place] 2 tab Mem oria 2-22 [place] 03:45: meloxicam 0 Yes [place] 1 tab(s) Memoria 5-25 [place] 00:00: Sertraline 0 Yes [place] 3 tab(s) Memoria Hydrochlori 5-25 [place] de 00:00: meloxicam 0 Yes [place] 1 tab(s) Memoria 5-25 [place] 00:00: Sertraline Yes [place] 3 tab(s) Memoria Hydrochlori 5-25 [place] de 00:00: trazodone 0 Yes [place] 1 tab(s) Memoria 4-27 [place] 02:48: trazodone Yes [place] 1 tab(s) Memoria 4-27 [place] 02:48: 21 aripiprazol 2018-0 Yes [place] 1 tab(s) Memoria e 4-25 [place] 00:00: [place] 00 aripiprazol 2018-0 Yes [place] 1 tab(s) Memoria e 4-25 [place] l 00:00: [place] 00 Abilify 2017-1 Yes [place] 1 tab(s) M emoria 0-25 [place] 00:00: [place] 00 Abilify 2017-1 Yes Protestant 1 tab(s) M emoria 0-25 Dyhi[place] l 00:00: [place] 00 Sertraline 2017-0 Yes [place] 1 tab M emoria Hydrochlori 8-04 [place] l de 00:00: [place] 00 Sertraline 2017-0 Yes Protestant 1 tab M emoria Hydrochlori 8-04 Dyhianto l de 00:00: Vital Signs Vital Name Observation Time Observation Value Comments Source Systolic blood 2022-02-25 22:02:00 136 mm[Hg] Univer sity [facility] Diastolic blood 2022-02-25 22:02:00 85 mm[Hg] Unive rsity [facility] Heart rate 2022-02-25 22:02:00 102 /min [facility] Body height 2022-02-25 22:02:00 167.6 cm [facility] Body weight 2022-02-25 22:02:00 65.772 kg [facility] BMI 2022-02-25 22:02:00 23.40 kg/m2 [facility] Oxygen saturation in 2022-02-25 22:02:00 99 /min [facility] Arterial blood by [facility] Pulse oximetry Branch Heart rate 2021-06-26 19:40:00 67 /min [facility] Respiratory rate 2021-06-26 19:40:00 22 /min Univ ersity [facility] Oxygen saturation in 2021-06-26 19:40:00 100 /min University Arterial blood by [facility] Pulse oximetry Branch Systolic blood 2021-06-26 19:30:00 155 mm[Hg] Univer sity [facility] Diastolic blood 2021-06-26 19:30:00 90 mm[Hg] Unive rsity of pressure [facility] Body temperature 2021-06-26 17:33:00 [facility].5 [facility] 2021-06-26 17:33:00 [facility] BMI 2021-06-26 17:33:00 22.60 kg/m2 [facility] Systolic (mm Hg) 2017-07-31 18:00:00 Nikhil rial [place] Heart Rate 2017-07-31 18:00:00 [facility] Temperature Oral (F) 2017-07-31 18:00:00 98.7 F [facility] [place] Weight 2017-07-31 18:00:00 [facility] [place] Height 2017-07-31 18:00:00 [facility] [place] Diastolic (mm Hg) 2017-07-31 18:00:00 Mem orial [place] Systolic (mm Hg) 2017-07-01 18:00:00 Nikhil rial [place] Heart Rate 2017-07-01 18:00:00 [facility] [place] Temperature Oral (F) 2017-07-01 18:00:00 98.5 F [facility] [place] Weight 2017-07-01 18:00:00 [facility] [place] Height 2017-07-01 18:00:00 [facility] [place] Diastolic (mm Hg) 2017-07-01 18:00:00 Mem orial [place] Systolic (mm Hg) 2017-04-01 19:15:00 Nikhil rial [place] Heart Rate 2017-04-01 19:15:00 [facility] [place] Temperature Oral (F) 2017-04-01 19:15:00 98.3 F [facility] [place] Weight 2017-04-01 19:15:00 [facility] [place] Height 2017-04-01 19:15:00 [facility] [place] Diastolic (mm Hg) 2017-04-01 19:15:00 Mem orial [place] Procedures Procedure Date / Time Performed Performing Clinician [facility] e ASSIGNMENT OF BENEFITS 2022-02-25 21:52:45 Doctor Unassigned, No [facility] Name Medical Branch REFERRAL- 2021-12-25 05:01:00 Doctor Unassigned, No [facility] REQUEST/RESPONSE Name Medical Branch MR BRAIN W WO CONTRAST 2021-07-03 16:14:47 Requisition, Paper Un iversity of [facility] MR CERVICAL SPINE W WO 2021-07-03 16:12:51 Requisition, Paper Un [facility] of [place] CONTRAST [facility] Branch CONSENT/REFUSAL FOR 2021-07-03 14:05:13 Doctor Unassigned, No [facility] [place] DIAGNOSIS AND Name Medical Branch TREATMENT ASSIGNMENT OF BENEFITS 2021-07-03 14:04:59 Doctor Unassigned, No [facility] Branch URINALYSIS 2021-06-26 18:33:00 [facility] CT HEAD WO CONTRAST 2021-06-26 18:12:08 Ed Tijerina [facility] COMP. METABOLIC PANEL 2021-06-26 18:02:[address] [facility] ([id number]) [facility] CBC WITH DIFF 2021-06-26 18:02:00 [facility] CONSENT/REFUSAL FOR 2021-06-26 17:29:17 Doctor Unassigned, No Un iversity of [place] DIAGNOSIS AND Name Medical Branch TREATMENT Encounters Start End Encounter Admission Attending Care Care Encounter Source Date/Time Date/Time Type Type Clinicians Facility Department ID 2022-04-02 Outpatient [id number] Memoria 13:17:56 [id number] J[place] [id number] 2022-02-25 Outpatient [id number] Memoria 15:58:28 [id number] Jaren [id number] 2022-02-25 2022-02-25 Office Katie GAEVELINA [id number] Univers 16:00:00 16:32:51 Visit [facility] [id number] Arnav [id number] Ricardo as BARNEY?BLEA [id number] Md bubba [address] MEDICAL OFFICE BUILDING 2022-02-25 2022-02-25 Outpatient R KATIERENO HOUSER [facility] [id number] Univers 16:00:00 16:32:51 KATIERENO HOUSER pritesh [facility] 2022-02-25 2022-02-25 Orders Doctor KHURRAM [id number] Univers 00:00:00 00:00:00 Only Unassigned, TOBIAS [id number] ity of [place] [facility] 4.2.7.2.686 Ricardo as [id number] [address] 2022-01-20 2022-01-20 Outpatient R KATIERENO HOUSER [facility] [id number] Univers 09:20:00 09:20:00 KATIERENO Barillas pritesh [facility] 2021-12-25 2021-12-25 Orders Doctor KHURRAM [id number] Univers 00:00:00 00:00:00 Only Unassigned, TOBIAS [id number] ity of [place] [facility] [id number] Ricardo as [id number] [address] 2021-07-03 2021-07-03 [facility] Radiology [facility] [id number] Univers 09:13:25 23:59:00 Encounter [place] [id number] ity of [place] 4.2.7.2.686 [place] [facility] [id number] [facility] [address] [place] 2021-07-03 2021-07-03 Outpatient R RADIOLOGY [facility] [id number] Univers 09:12:55 09:12:55 ity of [facility] 2021-07-03 2021-07-03 Hospital Radiology [facility] [id number] Univers 09:12:55 09:12:55 Encounter [place] [id number] ity of [place] 4.2.7.2.686 [place] [id number] [address] 2021-06-26 2021-06-26 Emergency X SINGER [facility] ERT [id number] Univers 12:35:00 14:43:00 ED itjamee of [facility] 2021-06-26 2021-06-26 Emergency [facility] [id number] Univers 12:35:00 14:43:00 Ed MILLER 350.1.13.10 i ty of [place] 4.2.7.2.686 [facility] s [place] [id number] [facility] 084 Branch 2021-06-26 2021-06-26 Orders Doctor KHURRAM [id number] [id number] Univers 00:00:00 00:00:00 Only Unassigned, TOBIAS [id number] ity of [facility] 4.2.7.2.686 [facility] [id number] [facility] 009 Branch 2018-10-21 2018-10-21 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, 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 [facility] 1.2.840.114 [id number] 09:23:08 09:38:08 Visit Joann 350.1.13.10 [place] 4.2.7.2.686 Irene [id number] 2018-08-22 2018-08-22 Emergency E MHTW MHTW [id number] MHTW 22:37:00 22:37:00 2018-02-26 2018-02-26 [place] [id number] eClinic 08:30:00 08:30:00 Family Family alWork s Medicine Medicine 2017-09-01 2017-09-01 Out[place] [id number] eClinic 10:55:00 10:55:00 Family Family alWork s Medicine Medicine 2017-08-19 2017-08-19 Out[place] [id number] eClinic 13:21:00 13:21:00 Family Family alWork s Medicine Medicine 2017-08-19 2017-08-19 Outpatient [place] [id number] eClinic 12:09:00 12:09:00 Family Family alWork s Medicine Medicine 2017-08-19 2017-08-19 Outpatient [place] [id number] eClinic 12:09:00 12:09:00 Family Family alWork s Medicine Medicine 2017-07-31 2017-07-31 Outpatient 2.16.840. [id number] eClinic 13:33:00 13:33:00 [id number] alWorks [id number] 2017-07-31 2017-07-31 Outpatient [place] [id number] eClinic 13:00:00 13:00:00 [facility] alWork s Medicine Medicine 2017-07-17 2017-07-17 Outpatient [place] [id number] eClinic 11:55:00 11:55:00 [facility] alWork s Medicine Medicine 2017-07-07 2017-07-07 Outpatient [place] [id number] eClinic 14:23:00 14:23:00 [facility] alWork s Medicine Medicine 2017-07-04 2017-07-04 Outpatient [place] [id number] eClinic 13:58:00 13:58:00 [facility] alWork s Medicine Medicine 2017-07-01 2017-07-01 Outpatient [place] [id number] eClinic 13:00:00 13:00:00 [facility] alWork s Medicine Medicine 2017-06-03 2017-06-03 Outpatient 2.16.840. 2.16.840.1. [id number] eClinic 13:22:00 13:22:00 [id number] alWorks [id number]. [id number] 2017-04-01 2017-04-01 Outpatient [place] [id number] eClinic 13:15:00 [facility] Results Test Description Test Time Test Comments Results Result Comments Source COMP. METABOLIC PANEL (89810) 2021-06-26 18:32:04 Test Item Value Reference Range Interpretation Comme nts NA (test code = 5373813078) 139 mmol/L 135-145 K (test code = 4735571174) 4.6 mmol/L 3.5-5.0 CL (test code = 2934479644) 105 mmol/L 98-108 CO2 TOTAL (test code = 28 mmol/L -7999 0084418910) AGAP (test code = 0483646664) 2-16 BUN (test code = 0473042295) 11 mg/dL 7-23 GLUCOSE (test code = 7436263643) 102 mg/dL 70-110 CREATININE (test code = 1.00 mg/dL 0.60-1.25 8057504662) TOTAL BILI (test code = 0.6 mg/dL 0.1-1.6 4771858906) CALCIUM (test code = 7403441339) 9.0 mg/dL 8.6-10.6 T PROTEIN (test code = 6.9 g/dL 6.3-8.2 5234691617) ALBUMIN (test code = 6730861922) 4.3 g/dL 3.5-5.0 ALK PHOS (test code = 7409779035) 78 U/L 34-122 ALTv (test code = 1742-6) 20 U/L 5-50 AST(SGOT) (test code = 26 U/L 13-40 6806200926) eGFR (test code = 8322239671) mL/min/1.73m2 MARLENE (test code = MARLENE) Association of Glomerular Filtration Rate (GFR) and Staging of Kidney Disease* + +--------- + ----+| GFR (mL/min/1.73 m2) ?| With Kidney Damage ?| ?Without Kidney Damage+ +--- + +| ?>90 ?| ?Stage one ?| ? Normal ?+ +-------- + -----+| ?60-89 ?| ?Stage two ?| ? Decreased GFR ? + +--------- + ----+| ?30-59 ?| ?Stage three ?| ? Stage three ? + +--------- + ----+| ?15-29 ?| ?Stage four ? | ? Stage four ?+ +-------- + -----+| ?<15 (or dialysis) ? ?| ?Stage five ? | ? Stage five ?+ +-------- + -----+ *Each stage assumes the associated GFR level has been in effect for at least three months. ?Stages 1 to 5, with or without kidney disease, indicate chronic kidney disease. Notes: Determination of stages one and two (with eGFR >59mL/min/1.73 m2) requires estimation of kidney damage for at least three months as defined by structural or functional abnormalities of the kidney, manifested by either:Pathological abnormalities or Markers of kidney damage (including abnormalities in the composition of the blood or urine or abnormalities in imaging tests). [facility] WITH [id number] 18:23:41 Test Item Value Reference Range Interpretation Comments WBC (test code = See_Comment L [Automated 6690-2) message] The sy stem which generated this result transmitted reference range : 4.20 - 10.70 10*3/?L. The reference range was not used to interpret this result as normal/abnormal . RBC (test code = See_Comment [Automated 789-8) message] The sy stem which generated this result transmitted reference range : 4.26 - 5.52 10*6/?L. The reference range was not used to interpret this result as normal/abnormal . HGB (test code = 14.8 g/dL 12.2-16.4 718-7) HCT (test code = 44.8 % 38.4-49.3 4544-3) MCV (test code = 93.9 fL 81.7-95.6 787-2) MCH (test code = 31.0 pg 26.1-32.7 785-6) MCHC (test code = 33.0 g/dL 31.2-35.0 786-4) RDW-SD (test code = 41.5 fL 38.5-51.6 98779-6) RDW-CV (test code = 11.9 % 12.1-15.4 L 788-0) PLT (test code = See_Comment [Automated 777-3) message] The sy stem which generated this result transmitted reference range : 150 - 328 10*3/ ?L. The reference r benjamin was not used to interpret this result as normal/abnormal . MPV (test code = 10.2 fL 9.8-13.0 36866-2) NRBC/100 WBC (test See_Comment [Automat ed code = 6907361003) message] The system which generated this result transmitted reference range : 0.0 - 10.0 /100 WBCs. The refer ence range was not u sed to interpret th is result as normal/abnormal . NRBC x10^3 (test code <0.01 See_Comment [Auto mated = [id number]) message] The s ystem which generated this result transmitted reference range : 10*3/?L. The reference range was not used to interpret this result as normal/abnormal . GRAN MAT (NEUT) % 69.1 % (test code = 770-8) IMM GRAN % (test code 0.00 % = 4448804358) LYMPH % (test code = 19.5 % 736-9) MONO % (test code = 8.8 % 5905-5) EOS % (test code = 2.1 % 713-8) BASO % (test code = 0.5 % 706-2) GRAN MAT x10^3(ANC) 2.66 10*3/uL 1.99-6.95 (test code = 2115018983) IMM GRAN x10^3 (test <0.03 0.00-0.06 code = 5363816853) LYMPH x10^3 (test code 0.75 10*3/uL 1.09-3.23 L = 731-0) MONO x10^3 (test code 0.34 10*3/uL 0.36-1.02 L = 742-7) EOS x10^3 (test code = 0.08 10*3/uL 0.06-0.53 711-2) BASO x10^3 (test code <0.03 0.01-0.09 = 704-7) Lab Interpretation Abnormal (test code = 12749-1) [facility] BRAIN WO/WCLINICAL INDICATION: C71.9 Malignant neoplasm of brain, unspecified, [...] on the right, probably reflecting old ischemia/treatment damaris nge.3. Generalized increased signal intensity in right periventricular distribution and in right frontal parietal deep white matter, presumably post- treatment change.FINDINGS:COMPARISON: noneThere is postoperative encephalomalacia in the anterior right parietal lobe. There has been a right frontal parietal craniotomy with anatomic replacement of bone flap. Mild dural thickening is seen at the site ofprior surgery without associated nodularity. Postoperative etiology is considered most likely for the dural thickening. Intracranially, there is a 2.7 x 1.5 cm cavity of encephalomalacia in the anterior right parietal lobe at the site of surgical neoplasm resection. There is no nodularity or pathologic enhancement in this region to suggest recurrent/residual tumor. There is an unrelated 8 mm focus ofencephalomalacia in the right occipital region near the splenium of the right corpus callosum which probably reflects old ischemia. No pathologic enhancement is seen in this region. Diffuse increased signal in the right frontal and parietal deep white matter is seen, likely reflecting post-treatment change. There is also some mild superimposed increased signal in the parietal white matter of the lefthemisphere which may reflect chronic ischemic change or [...] is mild mucosal thickening in the sphenoid sinus . The remainder of sinuses are clear. Mastoid air cells are clear.Results were discussed with Dr. Villaseñor by Dr. Tolentino."
[2022-04-02 14:09] LABS: Absolute Lymphocytes (CBC) 0.9 K/uL (0.7-4.9); Hematocrit 43.6 % (39.6-49.0); Lymphocytes % 16.3 % (15.3-44.8); MCV 92.4 fL (80-100); MPV 7.9 fL (7.6-11.3); RBC Red Blood Cell Count 4.72 M/uL (4.33-5.43)
[2022-04-02 14:26] LABS: Bilirubin Total 0.3 mg/dL (0.2-1.0); Potassium 4.4 mmol/L (3.5-5.1); Protein, Total 7.5 g/dL (6.4-8.2)
--- NOTE | 2022-04-02 14:58 | RAD REPORT ---
EXAM DESCRIPTION: CTAbdomen Pelvis W Contrast - 04/02/2022 2:44 pm CLINICAL HISTORY: Abdominal pain. abdominal pain COMPARISON: Abdomen Pelvis W Contrast dated 12/31/2019 TECHNIQUE: Biphasic CT imaging of the abdomen and pelvis was performed with 100 ml non-ionic IV cont rast. All CT scans are performed using dose optimization technique as appropriate and may include automated exposure control or mA/KV adjustment according to patient size. FINDINGS: The lung bases are clear. The liver, spleen, pancreas, adrenal glands and kidneys are within normal limits. No bowel obstruction, free air, free fluid or abscess. The appendix is normal. No evidence of signi ficant lymphadenopathy. No suspicious bony findings. IMPRESSION: No acute intra-abdominal or pelvic finding.
--- NOTE | 2022-04-02 16:02 | EDPHYS ---
Physician Documentation [facility] Name: Michael Soria Age: 56 yrs Sex: Male : 1965 Arrival Date: 04/02/2022 Time: 13:19 Bed 11 Private MD: Rolando Bejarano E ED Physician Ethan Cruz HPI: 04/02 13:50 This 56 yrs old Male presents to ER via Ambulatory with complaints of Bloody Stools. jmm 13:50 The patient presents to the emergency department with rectal bleeding, dark red blood jmm with bowel movement. Onset: The symptoms/episode began/occurred gradually. This is a 56 year old male with a history of GERD, htn that presents to the ED with complaints of bloody stools beginning yesterday. Denies weakness and fatigue. Denies hx of GI bleeding. Patient is currently taking protonix daily. Denies abdominal pain. . Historical: - Allergies: 13:43 No Known Allergies; iw - Home Meds: 13:43 Tramadol Oral [Active]; sertraline oral [Active]; iw - PMHx: 13:43 GERD; Hypertension; iw - PSHx: 13:43 brain; brain cancer; iw - Immunization history:: Client reports receiving the 2nd dose of the Covid vaccine, Flu vaccine status is unknown. - Social history:: Smoking status: Reported history of juuling and/or vaping. ROS: 13:50 Constitutional: Negative for fever, chills, and weight loss, Cardiovascular: Negative jmm for chest pain, palpitations, and edema, Respiratory: Negative for shortness of breath, cough, wheezing, and pleuritic chest pain. 13:50 Abdomen/GI: Positive for rectal bleeding. 13:50 All other systems are negative. Exam: 13:50 Constitutional: This is a well developed, well nourished patient who is awake, alert, jmm and in no acute distress. Head/Face: atraumatic. Eyes: EOMI, no conjunctival erythema appreciated ENT: Moist Mucus Membranes Neck: Trachea midline, Supple Chest/axilla: Normal chest wall appearance and motion. Cardiovascular: Regular rate and rhythm. No edema appreciated Respiratory: Normal respirations, no respiratory distress appreciated 13:50 Back: Normal ROM Skin: General appearance color normal MS/ Extremity: Moves all extremities, no obvious deformities appreciated, no edema noted to the lower extremities Neuro: Awake and alert Psych: Behavior is normal, Mood is normal, Patient is cooperative and pleasant 13:50 Abdomen/GI: Inspection: abdomen appears normal, Bowel sounds: normal, Palpation: abdomen is soft and non-tender, in all quadrants, Rectal exam: Stool: normal. Vital Signs: 13:42 BP 136 / 83; Pulse 68; Resp 16; Temp 97.7; Pulse Ox 100% on R/A; Weight 68.04 kg; iw Height 5 ft. 6 in. (167.64 cm); Pain 0/10; 13:42 Body Mass Index 24.21 (68.04 kg, 167.64 cm) iw MDM: 13:50 Patient medically screened. [facility] 15:58 Data reviewed: vital signs, nurses notes. Counseling: I had a detailed discussion with [facility] the patient and/or guardian regarding: the historical points, exam findings, and any diagnostic results supporting the discharge/admit diagnosis, lab results, radiology results, the need for outpatient follow up, to return to the emergency department if symptoms worsen or persist or if there are any questions or concerns that arise at home. ED course: Patient is normotensive. Normal H/H. RHONDA was unremarkable. Advised to follow up with GI for further evaluation. Patient understood and agrees with the plan of care. . 04/02 13:51 Order name: CBC with Diff; Complete Time: 14:12 [facility] 04/02 13:51 Order name: CMP; Complete Time: 14:31 [facility] 04/02 13:51 Order name: Type And Screen; Complete Time: 15:00 [facility] 04/02 13:51 Order name: Saline Lock; Complete Time: 13:59 [facility] 04/02 13:51 Order name: CT Abd/Pelvis - IV Contrast Only [facility] 04/02 13:55 Order name: Abdomen ; Complete Time: 15:00 [facility] 04/02 15:11 Order name: Gown patient; Complete Time: 16:05 [facility] 04/02 15:11 Order name: Misc. Order: RHONDA kit; Complete Time: 16:05 [facility] Administered Medications: No medications were administered Disposition: 16:43 Co-signature as Attending Physician, Ethan Cruz MD I reviewed the patient's care rt provided by the Advanced Practice Provider and agree with the diagnosis and treatment plan. Disposition Summary: 04/02/22 16:02 Discharge Ordered Location: Home [facility] Condition: Stable jm Diagnosis - GI Bleed/ Gastrointestinal hemorrhage, unspecified jmm Followup: [facility] - With: Rolando Lovett MD - When: 2 - 3 days - Reason: Recheck today's complaints, Continuance of care, Re-evaluation by your physician Discharge Instructions: - Discharge Summary Sheet jmm - Gastrointestinal Bleeding jm Forms: - Medication Reconciliation Form [facility] - Thank You Letter [facility] - Antibiotic Education [facility] - Prescription Opioid Use [facility] Prescriptions: - Anusol-HC 25 mg Rectal Suppository - insert 1 suppository by RECTAL route every 12 hours As needed; 6 suppository; [facility] Refills: 0, Product Selection Permitted Signatures: Dispatcher [employer] Mark Kenney PA PA jmm Williams, Irene, RN RN Ethan Faria MD MD rt
--- NOTE | 2022-04-02 16:02 | ER ---
Nurse's Notes [facility] Name: Michael Soria Age: 56 yrs Sex: Male : 1965 Arrival Date: 04/02/2022 Time: 13:19 Bed 11 Private MD: Rolando Bejarano E Diagnosis: GI Bleed/ Gastrointestinal hemorrhage, unspecified Presentation: 04/02 13:42 Chief complaint: Patient states: bloody stools X 1 week and has pain with BM. iw Coronavirus screen: At this time, the client does not indicate any symptoms associated with coronavirus-19. Ebola Screen: Patient negative for fever greater than or equal to 101.5 degrees Fahrenheit, and additional compatible Ebola Virus Disease symptoms Patient denies exposure to infectious person. Patient denies travel to an Ebola-affected area in the 21 days before illness onset. No symptoms or risks identified at this time. Initial Sepsis Screen: Does the patient meet any 2 criteria? No. Patient's initial sepsis screen is negative. Does the patient have a suspected source of infection? No. Patient's initial sepsis screen is negative. Risk Assessment: Do you want to hurt yourself or someone else? Patient reports no desire to harm self or others. Onset of symptoms was March 26, 2022. 13:42 Method Of Arrival: Ambulatory iw 13:42 Acuity: NANCY 3 iw Historical: - Allergies: 13:43 No Known Allergies; iw - Home Meds: 13:43 Tramadol Oral [Active]; sertraline oral [Active]; iw - PMHx: 13:43 GERD; Hypertension; iw - PSHx: 13:43 brain; brain cancer; iw - Immunization history:: Client reports receiving the 2nd dose of the Covid vaccine, Flu vaccine status is unknown. - Social history:: Smoking status: Reported history of juuling and/or vaping. Screenin:47 [facility] ED Fall Risk Assessment (Adult) Score/Fall Risk Level 0 - 2 = Low Risk. Abuse iw screen: Denies threats or abuse. Denies injuries from another. Nutritional screening: No deficits noted. Tuberculosis screening: No symptoms or risk factors identified. Assessment: 15:46 General: Appears in no apparent distress. Behavior is calm, cooperative. Pain: Denies iw pain. Neuro: Martinez Agitation-Sedation Scale (RASS): 0 - Alert and Calm Level of Consciousness is awake, alert, obeys commands, Oriented to person, place, time, situation, Moves all extremities. Full function. GI: Abdomen is flat, non-distended, Reports rectal bleeding. Vital Signs: 13:42 BP 136 / 83; Pulse 68; Resp 16; Temp 97.7; Pulse Ox 100% on R/A; Weight 68.04 kg; iw Height 5 ft. 6 in. (167.64 cm); Pain 0/10; 13:42 Body Mass Index 24.21 (68.04 kg, 167.64 cm) ED Course: 13:19 Patient arrived in ED. mr 13:20 Rolando Bejarano MD is Private Physician. mr 13:22 Mark Mario PA is PHCP. m 13:22 Ethan Cruz MD is Attending Physician. m 13:43 Triage completed. iw 13:45 Arm band placed on. iw 13:59 Inserted saline lock: 20 gauge in right antecubital area, using aseptic technique. zm Blood collected. 13:59 Type And Screen Sent. zm 13:59 CMP Sent. zm 13:59 CBC with Diff Sent. zm 14:46 Abdomen In Process Unspecified. EDMS 15:46 Becka Dolan, RN is Primary Nurse. iw 16:01 Rolando Lovett MD is Referral Physician. [facility] 16:20 No provider procedures requiring assistance completed. IV discontinued, intact, jl7 bleeding controlled, No redness/swelling at site. Pressure dressing applied. 16:21 Patient has correct armband on for positive identification. jl7 Administered Medications: No medications were administered Medication: 15:47 VIS not applicable for this client. Outcome: 16:02 Discharge ordered by . [facility] 16:20 Discharged to home ambulatory. jl7 16:20 Condition: stable 16:20 Discharge instructions given to patient, Instructed on discharge instructions, follow up and referral plans. medication usage, Demonstrated understanding of instructions, follow-up care, medications, Prescriptions given X 1. 16:21 Patient left the ED. jl7 Signatures: Dispatcher [employer] EDMS Mark Mario PA PA jmm CarlitosMaggy mr Becka Dolan, RN ASIM Marium Jones RN RN jl7 Ariana Bach Corrections: (The following items were deleted from the chart) 13:47 13:42 Pulse 68bpm; Resp 16bpm; Pulse Ox 100% RA; Temp 97.7F; 68.04 kg; Height 5 ft. 6 iw in.; BMI: 24.2; Pain 0/10; iw
[2022-04-02 16:35] VITALS: BP 136/83; TEMP 97.7; O2SAT 100
== END 2022-04-02 16:21 | disposition home or self-care (01) ==
LOC: ER 13:16
DX: K92.2 Gastrointestinal hemorrhage, unspecified (principal); I10 Essential (primary) hypertension; Z85.841 Personal history of malignant neoplasm of brain
CPT/HCPCS: 85025; 36415; 86900; 86850; 86901; 80053; 74177; Q9967

== ENCOUNTER 2022-12-12 12:20 | Emergency (ER) | payer OTHER ==
--- OUTSIDE RECORDS SUMMARY | 2022-12-12 12:24 | XMS REPORT | Continuity of Care Document ---
:[address] [facility] t Address [address] [place] [address] [address] [place] [address] Care Team Providers Name Role Phone Rolando Bejarano Primary Care Physician Reno Wilson MD Attending Clinician RENO WILSON Attending Clinician Unavailable RENO WILSON Attending Clinician Unavailable Doctor Unassigned, [place] Attending Clinician Unavailable Radiology Attending Clinician Unavailable [...] rs active active ity of problems problems [facility] Psychophys Psychophy Problem Active 2018-02-27 Memoria iological siological 03:45:52 l insomnia insomnia Clay n Active Problem 02/27/2018 eCW: [facility] Bipolar Bipolar Problem Active 2018-02-27 Me moria depression depression 03:45:52 l Active Jaren Problem 02/27/2018 eCW: [facility] B12 B12 Problem Active 2018-02-27 Memor ia deficiency deficiency 03:45:52 l Active [place] Problem 02/27/2018 eCW: [facility] 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 03:45:52 l depression depression He rmann Active Problem 02/27/2018 eCW: [facility] Chronic Chronic Problem Active 2018-02-27 Me moria fatigue fatigue 03:45:52 l Active Jaren Problem 02/27/2018 eCW: [facility] DDD DDD Problem Active 2018-02-27 Memor ia (degenerat (degenerat 03:45:52 l reynaldo disc reynaldo disc Clay n disease), disease), cervical cervical Active Problem 02/27/2018 eCW: [facility] Major Major Problem Active 2018-02-27 Nikhil julian depressive depressive 03:45:52 l disorder, disorder, Herm aleksandr single single episode, episode, unspecifie unspecifie d d Active Problem 02/27/2018 eCW: [facility] Primary Primary Problem Active 2018-02-27 Me moria insomnia insomnia 03:45:52 l Active [place] Problem 02/27/2018 eCW: [facility] 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 Problem 02/27/2018 eCW: [facility] Multiple Multiple Problem Active 2018-02-27 Memoria [place] 03:45:52 l Active [place] Problem 02/27/2018 eCW: [facility] Other Other Problem Active 2018-02-27 Memor ia chronic chronic 03:45:52 l pain pain [place] Active Problem 02/27/2018 eCW: [facility] Low back Low back Problem Active 2018-02-27 Memoria pain pain 03:45:52 l Active Jaren Problem 02/27/2018 eCW: [facility] Chronic Chronic Problem Active 2018-02-27 Me moria 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 Clay n Active Problem 02/27/2018 eCW: [facility] Allergies, Adverse Reactions, Alerts Allergy Allergy Status Severity Reaction(s) Onset Inactive Treating Comm ents Source Name Type Date Date Clinician Frankmbalta Frankmbalta Active stomach Memor ia upset 5-25 l 00:00: [place] 00 NO KNOWN Drug Active Univers ALLERGIE Class ity of [facility] [place] [facility] Social History Social Habit Start Date Stop Date Quantity Comments Source History of Smokes tobacco University of tobacco use daily [place] [facility] History SDOH University o f Alcohol Comment [place] [facility] Exposure to 2022-02-15 2022-02-25 Not sure University of SARS-CoV-2 00:00:00 15:51:00 [place] [facility] (event) [facility] Alcohol intake 2021-06-26 2021-06-26 .29 /d University of 00:00:00 00:00:00 [facility] Tobacco use and 2018-10-21 2018-10-21 User of smokeless Un iversity of exposure 00:00:00 00:00:00 tobacco [place] [facility] History [facility] 2018-10-21 2018-10-21 2 University o f Alcohol Frequency 00:00:00 00:00:00 [place] [facility] History [facility] 2018-10-21 2018-10-21 1 University o f Alcohol Std 00:00:00 00:00:00 [place] [facility] Drinks [facility] History [facility] 2018-10-21 2018-10-21 99 University o f Alcohol Binge 00:00:00 00:00:00 [place] [facility] Tobacco Comment 2018-10-21 2018-10-21 VAPS Universit y of 00:00:00 00:00:00 [facility] Sex [birth year] Universit y of 00:00:00 00:00:00 [facility] Smoking Status Start Date Stop Date Source Smokes tobacco daily 2018-10-21 00:00:00 Univers ity of [facility] Medications Ordered Filled Start Stop Current Ordering Indication Dosage Frequency Signature Comments Components Source Medication Medication Date Date Medication? Clinician (SIG) Name Name diclofenac 2021-03 Yes [id number] 50mg Take 1 Univers 50 mg 2-20 tablet by ity of tablet 00:00: mouth 2 (two) Medical times Branch daily as needed for Pain (scale 4-6). diclofenac 2021-03 Yes [id number] 50mg Take 1 Univers 50 mg 2-20 tablet by ity of tablet 00:00: mouth 2 (two) Medical times Branch daily as needed for Pain (scale 4-6). zolpidem 10 2021-03 Yes TAKE Univer s mg tablet 2-14 ONE-HALF ity of 00:00: TO ONE [place] (03/10 TO ) Medical TABLET(S) Branch BY [...] 00 :00 Medical Branch gadoteridol 2021- No [id number] .2mL/kg 12.7 mL Univers (PROHANCE-1 07-03 (0.2 mL/kg i ty of 5 mL) 16:15: 16:13 ?63.5 kg), [place] injection 00 :00 Intravenou Medi sven 12.7 mL s, ONCE, 1 Branch dose, On Thu07/03/21 at 1115, Routine tramadol Yes Take by Univer s HCl 8-15 mouth. ity of (TRAMADOL 12:33: [place] ORAL) 37 Medical Branch sertraline Yes Take by Univ ers HCl 8-15 mouth. ity of (SERTRALINE 12:33: [place] ORAL) 37 Medical Branch losartan 2018-0 Yes 3261 Take by Univer s potassium 8-15 mouth. ity of (LOSARTAN 12:33: Indication [place] 37 s: Medical 21-Hydroxy Branch lase Deficiency , TAKES ONE NIGHTLY tramadol 0 Yes Take by Univer s HCl 8-15 mouth. ity of (TRAMADOL 12:33: [place] ORAL) 37 Medical Branch pantoprazol Yes Take by Uni vers e sodium 8-15 mouth. ity of (PANTOPRAZO 12:33: Indication [place] LE ORAL) 37 s: ONE Medical DAILY Q AM Branch dicyclomine Yes Take by Uni vers HCl 8-15 mouth. ity of (DICYCLOMIN 12:33: [place] E ORAL) 37 Medical Branch sertraline 2018-0 Yes Take by Univ ers HCl 8-15 mouth. ity of (SERTRALINE 12:33: [place] ORAL) 37 Medical Branch tramadol 2018- Yes Take by Univer s HCl 8-15 mouth. ity of (TRAMADOL 12:33: [place] ORAL) 37 Medical Branch sertraline 2019-0 Yes Take by Univ ers HCl 8-15 [...] [place] E ORAL) 37 Medical Branch losartan Yes 3261 [...] 12:33: [place] ORAL) 37 Medical Branch losartan 2018-0 Yes 3261 Take by Univer s potassium [...] lase Deficiency , TAKES ONE NIGHTLY pantoprazol 2018-0 Yes Take by Uni vers e sodium [...] 12:33: [place] ORAL) 37 Medical Branch losartan 2018-0 Yes 3261 Take by Univer s potassium [...] [place] E ORAL) 37 Medical Branch tramadol 2017-03 Yes [employer] 2 tab Mem oria 2-22 [place] l 03:45: tramadol 2017-03 Yes [employer] 2 tab Mem oria 2-22 [place] l 03:45: tramadol 2017-03 Yes [employer] 2 tab Mem oria 2-22 [place] 03:45: Sertraline Yes [employer] 3 tab(s) Memoria Hydrochlori 5-25 [place] de 00:00: meloxicam Yes [employer] 1 tab(s) Memoria 5-25 [place] l 00:00: Sertraline Yes [employer] 3 tab(s) Memoria Hydrochlori 5-25 [place]hi[place] l de 00:00: meloxicam Yes [employer] 1 tab(s) Memoria 5-25 [place] l 00:00: Sertraline Yes [employer] 3 tab(s) Memoria Hydrochlori 5-25 [place]hi[place] l de 00:00: meloxicam 2018-0 Yes [employer] 1 tab(s) Memoria 5-25 [place] l 00:00: trazodone 2018-0 Yes [employer] 1 tab(s) Memoria 4-27 [place] l 02:48: trazodone 2018-0 Yes [employer] 1 tab(s) Memoria 4-27 [place]hi[place] l 02:48: trazodone 2018-0 Yes [employer] 1 tab(s) Memoria 4-27 [place] l 02:48: aripiprazol 2018-0 Yes [employer] 1 tab(s) Memoria e 4-25 [place] l 00:00: aripiprazol 2018-0 Yes [employer] 1 tab(s) Memoria e 4-25 [place] l 00:00: aripiprazol 2018-0 Yes [employer] 1 tab(s) Memoria e 4-25 [place] l 00:00: Abilify 2017-1 Yes [employer] 1 tab(s) M emoria 0-25 [place] 00:00: Abilify 2017-1 Yes [employer] 1 tab(s) M emoria 0-25 [place] l 00:00: Abilify 2017-1 Yes [employer] 1 tab(s) M emoria 0-25 [place] l 00:00: Sertraline 2017-0 Yes [employer] 1 tab M emoria Hydrochlori 8-04 [place] de 00:00: Sertraline 2017-0 Yes [employer] 1 tab M emoria Hydrochlori 8-04 [place]hi[place] l de 00:00: Sertraline 2017-0 Yes [employer] 1 tab M emoria Hydrochlori 8-04 Dyhi[place] l de 00:00: Vital Signs Vital Name Observation Time Observation Value Comments Source Systolic blood 2022-02-25 22:02:00 136 mm[Hg] Univer sity of pressure [facility] Diastolic blood 2022-02-25 22:02:00 85 [facility]Hg[facility] 2022-02-25 22:02:00 102 /min Universi ty [facility] Body height 2022-02-25 22:02:00 167.6 cm Universi [facility] [place] Body weight 2022-02-25 22:02:00 65.772 kg Universi ty [facility] BMI 2022-02-25 22:02:00 23.40 kg/m2 Universi ty [facility] Oxygen saturation in 2022-02-25 22:02:00 99 /min University of Arterial blood by [facility] Pulse oximetry Branch Heart rate 2021-06-26 19:40:00 67 /min Universi ty [facility] Respiratory rate 2021-06-26 19:40:00 22 /min [facility] Oxygen saturation in 2021-06-26 19:40:00 100 /min [place] of Arterial blood by [facility] Pulse oximetry Branch Systolic blood 2021-06-26 19:30:00 155 mm[Hg] Univer sity of pressure [facility] Diastolic blood 2021-06-26 19:30:00 90 mm[Hg] Unive rsity of pressure [facility] Body temperature 2021-06-26 17:33:00 36.5 Fernanda [facility] Body weight 2021-06-26 17:33:00 [facility] BMI 2021-06-26 17:33:00 22.60 kg/m2 [facility] Systolic (mm Hg) 2017-07-31 18:00:00 Nikhil rial Jaren Heart Rate 2017-07-31 18:00:00 [facility] [place] Temperature Oral (F) 2017-07-31 18:00:00 98.7 F [facility] [place] Weight 2017-07-31 18:00:00 [facility] [place] Height 2017-07-31 18:00:00 [facility] [place] Diastolic (mm Hg) 2017-07-31 18:00:00 Mem orial [place] Systolic (mm Hg) 2017-07-01 18:00:00 Nikhil rial Jaren Heart Rate 2017-07-01 18:00:00 [facility] [place] Temperature Oral (F) 2017-07-01 18:00:00 98.5 F [facility] [place] Weight 2017-07-01 18:00:00 [facility] [place] Height 2017-07-01 18:00:00 [facility] [place] Diastolic (mm Hg) 2017-07-01 18:00:00 Mem orial Jaren Systolic (mm Hg) 2017-04-01 19:15:00 Nikhil Eastman Heart Rate 2017-04-01 19:15:00 [facility] [place] Temperature Oral (F) 2017-04-01 19:15:00 98.3 F [facility] Weight 2017-04-01 19:15:00 [facility] [place] Height 2017-04-01 19:15:00 [facility] [place] Diastolic (mm Hg) 2017-04-01 19:15:00 Mem orial Jaren Procedures Procedure Date / Time Performed Performing Clinician [facility] e ASSIGNMENT OF BENEFITS 2022-02-25 21:52:45 Doctor Unassigned, No [facility] REFERRAL- 2021-12-25 05:01:00 Doctor Unassigned, No [facility] REQUEST/RESPONSE Name Medical Branch MR BRAIN W WO CONTRAST 2021-07-03 16:14:47 [facility] WO 2021-07-03 16:12:51 [facility]REFUSAL FOR 2021-07-03 14:05:13 [facility], [facility] AND Name Medical Branch TREATMENT ASSIGNMENT OF BENEFITS 2021-07-03 14:04:59 Doctor Unassigned, No [facility] URINALYSIS 2021-06-26 18:33:00 Singer [facility] CT HEAD WO CONTRAST 2021-06-26 18:12:08 Ed Tijerina [facility] Medical [place] COMP. METABOLIC PANEL 2021-06-26 18:02:00 Ed Tijerina [facility] ([id number]) Medical Branch CBC WITH DIFF 2021-06-26 18:02:00 Tijerina, [facility] CONSENT/REFUSAL FOR 2021-06-26 17:29:17 Doctor Unassigned, [facility]AG[facility] AND Name Medical Branch TREATMENT Encounters Start End Encounter Admission Attending Care Care Encounter Source Date/Time Date/Time Type Type Clinicians Facility Department ID 2022-12-12 Outpatient [id number] Memoria 12:23:32 [id number] Jaren [id number] [id number] 2022-04-02 Outpatient [id number] Memoria 13:17:56 [id number] Jaren [id number] 2022-02-25 Outpatient [id number] Memoria 15:58:28 [id number] Jaren [id number] 2022-02-25 2022-02-25 Office Katie [facility] [id number] Univers 16:00:00 16:32:51 Visit [facility] [id number] ity [facility] 4.2.7.2.686 Ricardo as BARNEY?BLEA [phone] [address] OFFICE [facility] 2022-02-25 2022-02-25 Outpatient RENO GONZALES [facility] [id number] Univers 16:00:00 16:32:51 RENO WILSON itjamee [facility] 2022-02-25 2022-02-25 Orders Doctor PAULSON [id number] Univers 00:00:00 00:00:00 Only Unassigned, TOBIAS [id number] ity of [facility] 4.2.7.2.686 Ricardo as [id number] [address] 2022-01-20 2022-01-20 Outpatient RENO GONZALES [facility] [id number] Univers 09:20:00 09:20:00 RENO WILSON ity of [facility] 2021-12-25 2021-12-25 Orders Doctor KHURRAM [id number] Univers 00:00:00 00:00:00 Only Unassigned, TOBIAS [id number] ity of [place] [facility] 4.2.7.2.686 Ricardo as [id number] [facility] 009 [place] 2021-07-03 2021-07-03 Hospital Radiology [facility] [id number] Univers 09:13:25 23:59:00 Encounter [place] 350.1.13.10 ity of [place] [id number] [facility] 804 [place] 2021-07-03 2021-07-03 Outpatient R RADIOLOGY [facility] [id number] Univers 09:12:55 09:12:55 ity of [facility] 2021-07-03 2021-07-03 [facility] Radiology [facility] 1.2.840.114 [id number] Univers 09:12:55 09:12:55 Encounter ANGELA 350.1.13.10 ity of [place] [id number] [facility] 804 [place] 2021-06-26 2021-06-26 Emergency X [facility] ERT [id number] Univers 12:35:00 14:43:00 ED jonas [facility] 2021-06-26 2021-06-26 Emergency [facility] [id number] Univers 12:35:00 14:43:00 Ed ANGELA 350.1.13.10 i ty of [place] [id number] [facility] 084 [place] 2021-06-26 2021-06-26 Orders Doctor KHURRAM 1.2.840.114 [id number] Univers 00:00:00 00:00:00 Only Unassigned, TOBIAS 350.1.13.10 ity of [place] [facility] 4.2.7.2.686 Ricardo as [id number] [facility] 009 [place] 2018-10-21 2018-10-21 Conventions Reservationist 1, Adc Lab [facility] 1.2.840.114 [id number] 09:23:08 09:38:08 Visit [place] 350.1.13.10 [place] 4.2.7.2.686 [place] [id number] 2018-08-22 2018-08-22 Emergency E MHTW MHTW [id number] MHTW 22:37:00 22:37:00 2018-02-26 2018-02-26 [place] [facility] [place] [id number] eClinic 08:30:00 08:30:00 Family Family alWork s Medicine Medicine 2017-09-01 2017-09-01 Outpatient [place] [facility] [place] [id number] eClinic 10:55:00 10:55:00 Family Family alWork s Medicine Medicine 2017-08-19 2017-08-19 [place] [facility] [place] [id number] eClinic 13:21:00 13:21:00 Family Family alWork s Medicine Medicine 2017-08-19 2017-08-19 Outpatient [place] [facility] [place] [id number] eClinic 12:09:00 12:09:00 Family Family alWork s Medicine Medicine 2017-08-19 2017-08-19 Outpatient [place] [facility] [place] [id number] eClinic 12:09:00 12:09:00 Family Family alWork s Medicine Medicine 2017-07-31 2017-07-31 Outpatient 2.16.840. 2.16.840.1. [id number] eClinic 13:33:00 13:33:00 [id number] alWorks 4.391.11. [id number] 2017-07-31 2017-07-31 Outpatient [facility] [id number] eClinic 13:00:00 13:00:00 Family Family alWork s Medicine Medicine 2017-07-17 2017-07-17 Outpatient [facility] [place] [facility] [id number] eClinic 11:55:00 11:55:00 Family Family alWork s Medicine Medicine 2017-07-07 2017-07-07 Outpatient [facility] [place] [facility] [id number] eClinic 14:23:00 14:23:00 Family Family alWork s Medicine Medicine 2017-07-04 2017-07-04 Outpatient [facility] [id number] eClinic 13:58:00 13:58:00 Family Family alWork s Medicine Medicine 2017-07-01 2017-07-01 Outpatient Melissa Torres [id number] eClinic 13:00:00 13:00:00 [facility] 2017-06-03 2017-06-03 Outpatient 2.16.840. 2.16.840.1. 5 [id number] eClinic 13:22:00 13:22:00 [id number] alWorks 4.391.11. [id number] 2017-04-01 2017-04-01 [facility] [id number] 13[facility]00 [facility] Results Test Description Test Time Test Comments Results Result Comments Source COMP. METABOLIC PANEL (83948) 2021-06-26 18:32:04 Test Item Value Reference Range Interpretation Comme nts NA (test code = 7813379841) 139 mmol/L 135-145 K (test code = 0532073170) 4.6 mmol/L 3.5-5.0 CL (test code = 3716922319) 105 mmol/L 98-108 CO2 TOTAL (test code = 28 mmol/L 23-31 5526174089) AGAP (test code = 7909706360) 2-16 BUN (test code = 8081568666) 11 mg/dL 7-23 GLUCOSE (test code = 3079691755) 102 mg/dL 70-110 CREATININE (test code = 1.00 mg/dL 0.60-1.25 4945821260) TOTAL BILI (test code = 0.6 mg/dL 0.1-1.3 8464838109) CALCIUM (test code = 4676759840) 9.0 mg/dL 8.6-10.6 T PROTEIN (test code = 6.9 g/dL 6.3-8.2 4680746442) ALBUMIN (test code = 9370154779) 4.3 g/dL 3.5-5.0 ALK PHOS (test code = 0781132486) 78 U/L 34-122 ALTv (test code = 1742-6) 20 U/L 5-50 AST(SGOT) (test code = 26 U/L 13-40 5362946403) eGFR (test code = 4328690923) mL/min/1.73m2 MARLENE (test code = MARLENE) Association [...] or urine or abnormalities in imaging tests). [facility] WITH [id number] 18:23:41 Test Item Value Reference Range Interpretation Comments WBC (test code = See_Comment L [Automated 2488-2) message] The sy stem which generated this result transmitted reference range : 4.20 - 10.70 10*3/?L. The reference range was not used to interpret this result as normal/abnormal . RBC (test code = See_Comment [Automated 494-8) message] The sy stem which generated this [...] RDW-SD (test code = 41.5 fL 38.5-51.6 63209-9) RDW-CV (test code = 11.9 % 12.1-15.4 L 788-0) PLT (test code = See_Comment [Automated 777-3) message] The sy stem which generated this result transmitted reference range : 150 - 328 10*3/ ?L. The reference r benjamin was not used to interpret this result as normal/abnormal . MPV (test code = 10.2 fL 9.8-13.0 97942-0) NRBC/100 WBC (test See_Comment [Automat ed code = 4967905861) message] The system which generated this result transmitted reference range : 0.0 - 10.0 /100 WBCs. The refer ence range was not u sed to interpret th is result as normal/abnormal . NRBC x10^3 (test code <0.01 See_Comment [Auto mated = 7790811743) message] The s ystem which generated this result transmitted reference range : 10*3/?L. The reference range was not used to interpret this result as normal/abnormal . GRAN MAT (NEUT) % 69.1 % (test code = 770-8) IMM GRAN % (test code 0.00 % = 1749090824) LYMPH % (test code = 19.5 % 736-9) MONO % (test code = 8.8 % 5905-5) EOS % (test code = 2.1 % 713-8) BASO % (test code = 0.5 % 706-2) GRAN MAT x10^3(ANC) 2.66 10*3/uL 1.99-6.95 (test code = 9397413737) IMM GRAN x10^3 (test <0.03 0.00-0.06 code = 8862373379) LYMPH x10^3 (test code 0.75 10*3/uL 1.09-3.23 L = 731-0) MONO x10^3 (test code 0.34 10*3/uL 0.36-1.02 L = 742-7) EOS x10^3 (test code = 0.08 10*3/uL 0.06-0.53 711-2) BASO x10^3 (test code <0.03 0.01-0.09 = 704-7) Lab Interpretation Abnormal (test code = 96522-2) [facility] BRAIN WO/WCLINICAL INDICATION: C71.9 Malignant neoplasm of [...]
[2022-12-12 13:00] LABS: Methadone ND (NEGATIVE)
[2022-12-12 13:05] LABS: Absolute Lymphocytes (CBC) 0.9 K/uL (0.7-4.9); Hematocrit 47.7 % (39.6-49.0); Lymphocytes % 11.7 % (15.3-44.8); MCV 94.2 fL (80-100); MPV 8.2 fL (7.6-11.3); Platelets 238 thou/uL (152-406); RBC Red Blood Cell Count 5.07 M/uL (4.33-5.43)
[2022-12-12 13:08] LABS: Protime INR 1.05
[2022-12-12 13:12] LABS: Barbiturates NEGATIVE (NEGATIVE); Benzodiazepines POSITIVE (NEGATIVE); Cocaine NEGATIVE (NEGATIVE); METHAMPHETAM NEGATIVE (NEGATIVE); Opiates NEGATIVE (NEGATIVE); Phencyclidine NEGATIVE (NEGATIVE); THC Cannibis NEGATIVE (NEGATIVE)
[2022-12-12 13:21] LABS: ALT/SGPT 37 U/L (16-61); AST/SGOT 15 U/L (15-37); Albumin 4.1 g/dL (3.4-5.0); Alkaline Phosphatase 85 U/L (45-117); BUN Blood Urea Nitrogen 13 mg/dL (7-18); Bicarbonate 29 mEq/L (21-32); Bilirubin Direct 0.2 mg/dL (0-0.2); Bilirubin Indirect, Calculated 0.4 mg/dL (0.2-0.8); Bilirubin Total 0.6 mg/dL (0.2-1.0); Glomerular Filtration Rate 63 ml/min (=/>90); Glucose Level 123 mg/dL (74-106); Potassium 3.3 mEq/L (3.5-5.1); Protein, Total 8.3 g/dL (6.4-8.2); Sodium Level 133 mEq/L (136-145)
--- NOTE | 2022-12-12 15:23 | ER ---
Nurse's Notes [facility] Jesus Manuel Name: Michael Soria Age: 57 yrs Sex: Male : 1965 Arrival Date: 12/12/2022 Time: 12:20 Bed 14 Private MD: Diagnosis: Suicidal ideations Presentation: 12/12 12:28 Chief complaint: Suicidal thoughts and increased anxiety since yesterday, plan is to hb overdose with pills. Denies previous attempt. Takes Zoloft and Ambien, took Ambien this morning for anxiety with no relief. Daily drinker, last drink was last night. 12:28 Method Of Arrival: Ambulatory hb 12:30 Coronavirus screen: At this time, the client does not indicate any symptoms associated hb with coronavirus-19. Ebola Screen: No symptoms or risks identified at this time. Initial Sepsis Screen: Does the patient meet any 2 criteria? No. Patient's initial sepsis screen is negative. Does the patient have a suspected source of infection? No. Patient's initial sepsis screen is negative. Risk Assessment: Do you want to hurt yourself or someone else? Patient reports no desire to harm self or others. Onset of symptoms was December 11, 2022. 12:30 Acuity: NANCY 2 hb Triage Assessment: 12:35 General: Appears in no apparent distress. Behavior is calm, cooperative. Pain: Denies mb9 pain. EENT: No deficits noted. Neuro: Martinez Agitation-Sedation Scale (RASS): 0 - Alert and Calm Level of Consciousness is awake, alert, obeys commands, Oriented to person, place, time, situation, Appropriate for age. Cardiovascular: Patient's skin is warm and dry. Respiratory: Airway is patent Respiratory effort is even, unlabored, Respiratory pattern is regular, symmetrical. GI: No signs and/or symptoms were reported involving the gastrointestinal system. : No signs and/or symptoms were reported regarding the genitourinary system. Derm: Skin is pink, warm \\T\\ dry. Musculoskeletal: Range of motion: intact in all extremities. Historical: - Allergies: 12:29 No Known Allergies; hb - Home Meds: 15:37 sertraline 100 mg oral tablet daily [Active]; mb9 - PMHx: 12:29 GERD; Hypertension; hb - PSHx: 12:29 Brain; brain cancer; hb - Immunization history:: Adult Immunizations up to date. - Social history:: Smoking status: Reported history of juuling and/or vaping. Patient uses alcohol, on a daily basis. Screenin:11 [facility] ED Fall Risk Assessment (Adult) History of falling in the last 3 months, mb9 including since admission No falls in past 3 months (0 pts) Confusion or Disorientation No (0 pts) Intoxicated or Sedated No (0 pts) Impaired Gait No (0 pts) Mobility Assist Device Used No (0 pt) Altered Elimination No (0 pt) Score/Fall Risk Level 0 - 2 = Low Risk Oriented to surroundings, Maintained a safe environment, Educated pt \\T\\ family on fall prevention, incl call for assistance when getting out of bed. Abuse screen: Denies threats or abuse. Nutritional screening: No deficits noted. Tuberculosis screening: No symptoms or risk factors identified. Assessment: 12:30 Reassessment: Patient and/or family updated on plan of care and expected duration. Pain mb9 level reassessed. Patient is alert, oriented x 3, equal unlabored respirations, skin warm/dry/pink. SI precautions in place. Sitter at bedside. 12:35 Reassessment: See C-SSRS screening form and packet for more information. mb9 13:30 Reassessment: Patient and/or family updated on plan of care and expected duration. Pain mb9 level reassessed. Patient is alert, oriented x 3, equal unlabored respirations, skin warm/dry/pink. SI precautions in place. Sitter at bedside. 14:30 Reassessment: Patient and/or family updated on plan of care and expected duration. Pain mb9 level reassessed. Patient is alert, oriented x 3, equal unlabored respirations, skin warm/dry/pink. SI precautions in place. Sitter at bedside. [facility]. 15:30 Reassessment: No changes from previously documented assessment. Patient and/or family mb9 updated on plan of care and expected duration. Pain level reassessed. Patient is alert, oriented x 3, equal unlabored respirations, skin warm/dry/pink. SI precautions in place. Sitter at bedside. 15:52 Reassessment: nurse to nurse done with Tammy at [facility]. mb9 16:30 Reassessment: Patient and/or family updated on plan of care and expected duration. Pain mb9 level reassessed. Patient is alert, oriented x 3, equal unlabored respirations, skin warm/dry/pink. SI precautions in place. Sitter at bedside. 17:30 Reassessment: Patient and/or family updated on plan of care and expected duration. Pain mb9 level reassessed. Patient is alert, oriented x 3, equal unlabored respirations, skin warm/dry/pink. SI precautions in place. Sitter at bedside. Psych: 12:30 [place] Suicide Severity Screening: In the past month, have you wished you were mb9 or wished you could go to sleep and not wake up? Patient responds "yes." Based off the client's responses additional C-SSRS screening is required. "In the past month, have you actually had any thoughts of killing yourself?" Patient responds "yes." Based off the client's response additional [place] suicide severity screening questions to be further documented on paper forms. "In your lifetime, have you ever done anything, started to do anything, or prepared to do anything to end your life?" Patient responds "yes." Patient reports suicidal intent within 3 past months. Subjective: Patient's mood is hopeless, Delusions are denied, Hallucinations are denied Having thoughts of suicide. Plan for suicide is overdosing on pills. Objective: Patient is cooperative, Speech is normal, Affect is flat. Interventions: Removed personal items and placed in bag. Patient placed in hospital gown. Searched person for dangerous items. Urine collected and sent for urine drug test. Belonging list filled out. Safety Checks: Personal items have been removed. Door is open. Visitors are present. Patient uses Last use was 3 hours ago. Vital Signs: 12:30 BP 138 / 91; Pulse 71; Resp 16; Temp 97.9(TE); Pulse Ox 100% on R/A; Weight 65.77 kg; hb Height 5 ft. 6 in. ; Pain 0/10; 12:30 Body Mass Index 23.40 (65.77 kg, 167.64 cm) hb 12:30 Pain Scale: Adult hb ED Course: 12:21 Patient arrived in ED. rg4 12:25 [facility] jh7 12:25 Robbin Farias MD is Attending Physician. 7 12:30 Arm band placed on. hb 12:31 Triage completed. hb 12:48 Brehugoan, Kylee, RN is Primary Nurse. mb9 13:01 Acetaminophen Sent. bc6 13:01 Basic Metabolic Panel Sent. bc6 13:01 CBC with Diff Sent. bc6 13:01 ETOH Level Sent. bc6 13:01 Hepatic Function Sent. bc6 13:01 PT-INR Sent. bc6 13:01 Ptt, Activated Sent. bc6 13:01 Salicylate Sent. bc6 13:01 Urine Drug Screen Sent. bc6 13:01 Inserted saline lock: 20 gauge in right antecubital area, using aseptic technique. bc6 Blood collected. 13:11 Placed in gown. Bed in low position. Call light in reach. Side rails up X 1. mb9 13:11 No provider procedures requiring assistance completed. mb9 13:42 called the [facility] Crisis Line/ Rivera lorenzo page a screener and call to come screen eb patient. 14:26 Shekhar from [facility] here to screen patient. 15:21 Yoana Yost from [facility] with Maggy Woody Rn for patient transfer consultation. 16:02 administrative approval given given by Eveline Robert/ patient has been accepted to [facility]/ Dr. Palacios has accepted the patient in transfer without conference with Cassandra Marinelli/. 16:15 [facility] called for transport/ all trucks are out and are unable to transport. 16:18 [facility] called/ eta one hour to one and a half hours. 18:18 IV discontinued, intact, bleeding controlled, No redness/swelling at site. Pressure mb9 dressing applied. Administered Medications: 15:25 Drug: Nicotine Transdermal Patch 21 mg/24 hr 1 patches Transdermal once Route: mb9 Transdermal; Site: affected area; 15:51 Drug: Ativan IVP 1 mg IVP once Route: IVP; Site: right antecubital; mb9 Medication: 13:11 VIS not applicable for this client. mb9 Outcome: 15:22 ER care complete, transfer ordered by . Letha 18:17 Transferred Transfer form completed. mb9 18:17 Condition: stable 18:17 Instructed on the need for transfer, 18:19 Patient left the ED. mb9 Signatures: Ciera Barker, RN RN Lissette Herr Elizabeth eb Hadash, Jennifer, FNP FNP Maggy Bruceh, RN RN mb9 Ruchi Estrada 6 Corrections: (The following items were deleted from the chart) 12:28 Chief complaint: Suicidal thoughts since yesterday, plan is to overdose with hb pills. Denies previous attempt. Takes Zoloft and Ambien, took Ambien this morning for anxiety with no relief. hb : 12:28 Chief complaint: Suicidal thoughts and increased anxiety since yesterday, plan is hb to overdose with pills. Denies previous attempt. Takes Zoloft and Ambien, took Ambien this morning for anxiety with no relief. hb
--- NOTE | 2022-12-12 15:23 | EDPHYS ---
Physician Documentation [facility] Name: Michael Soria Age: 57 yrs Sex: Male : 1965 Arrival Date: 12/12/2022 Time: 12:20 Bed 14 Private MD: ED Physician Robbin Farias HPI: 12/12 12:30 This 57 yrs old Male presents to ER via Ambulatory with complaints of Suicidal Ideation.jh7 12:30 The patient presents to the emergency department with anxiety, suicide ideation, and jh7 the patient has a plan, to overdose with medications. Onset: The symptoms/episode began/occurred yesterday. Past psychiatric history: Prior diagnosis: Anxiety, Psychiatric medications include: Zoloft, Primary psychiatric physician: Dr. Maximilian Alegre, the patient has not had a prior suicide gesture, the patient does not have a previous inpatient psychiatric history. Associated signs and symptoms: The patient has no apparent associated signs or symptoms. 57-year-old male presents to the ER with suicidal ideation. Reports that his anxiety has been increasing since yesterday. He states that he drank beer all day yesterday but that it did not help with his anxiety. Reports that he took an Ambien, which also did not help. Reports that he does have a plan, and that is to take many sleeping pills. States that he takes Zoloft and feels that his psychiatrist does not take his anxiety seriously.. Historical: - Allergies: 12:29 No Known Allergies; hb - Home Meds: 15:37 sertraline 100 mg oral tablet daily [Active]; mb9 - PMHx: 12:29 GERD; Hypertension; hb - PSHx: 12:29 Brain; brain cancer; hb - Immunization history:: Adult Immunizations up to date. - Social history:: Smoking status: Reported history of juuling and/or vaping. Patient uses alcohol, on a daily basis. ROS: 12:30 Constitutional: Negative for fever, chills, and weight loss, Eyes: Negative for injury, jh7 pain, redness, and discharge, Cardiovascular: Negative for chest pain, palpitations, and edema, Respiratory: Negative for shortness of breath, cough, wheezing, and pleuritic chest pain, Abdomen/GI: Negative for abdominal pain, nausea, vomiting, diarrhea, and constipation, Skin: Negative for injury, rash, and discoloration, Neuro: Negative for headache, weakness, numbness, tingling, and seizure, 12:30 Psych: Positive for anxiety, suicidal ideation, Negative for auditory hallucinations, visual hallucinations, homicidal ideation, 12:30 All other systems are negative, Exam: 12:30 Constitutional: This is a well developed, well nourished patient who is awake, alert, jh7 and in no acute distress. Head/Face: Normocephalic, atraumatic. Neck: Trachea midline, no thyromegaly or masses palpated, and no cervical lymphadenopathy. Supple, full range of motion without nuchal rigidity, or vertebral point tenderness. No Meningismus. Cardiovascular: Regular rate and rhythm with a normal S1 and S2. No gallops, murmurs, or rubs. Normal PMI, no JVD. No pulse deficits. Respiratory: Lungs have equal breath sounds bilaterally, clear to auscultation and percussion. No rales, rhonchi or wheezes noted. No increased work of breathing, no retractions or nasal flaring. Skin: Warm, dry with normal turgor. Normal color with no rashes, no lesions, and no evidence of cellulitis. MS/ Extremity: Pulses equal, no cyanosis. Neurovascular intact. Full, normal range of motion. Neuro: Awake and alert, GCS 15, oriented to person, place, time, and situation. Motor strength 5/5 in all extremities. Sensory grossly intact. Normal gait. Vital Signs: 12:30 BP 138 / 91; Pulse 71; Resp 16; Temp 97.9(TE); Pulse Ox 100% on R/A; Weight 65.77 kg; hb Height 5 ft. 6 in. ; Pain 0/10; 12:30 Body Mass Index 23.40 (65.77 kg, 167.64 cm) hb 12:30 Pain Scale: Adult hb MDM: 12:25 Patient medically screened. [facility] 14:00 ED course: Informed by Dorcas that [facility]comm[facility] Jori was 15 minutes away.. [facility] 15:30 Differential diagnosis: acute psychotic break, depression, Suicidal ideation. Data [facility] reviewed: vital signs, nurses notes, lab test result(s), EKG. Consideration of Admission/Observation Will be transferred to a psychiatric facility. Management of patient was discussed with the following: Behavioral Health Provider: Shekhar. I considered the following discharge prescriptions or medication management in the emergency department Medications were administered in the Emergency Department. See EDITH Corrigan advised inpatient transfer. He reports that the patient admitted to mixing sleeping medication with alcohol recently and states that he has had issues with suicidal ideation since 1993.. Counseling: I had a detailed discussion with the patient and/or guardian regarding the historical points, exam findings, and any diagnostic results supporting the discharge/admit diagnosis, the need to transfer to another facility, [facility] does not immediately have the required specialist. 12/12 12:31 Order name: Acetaminophen; Complete Time: 13:28 [facility] 12/12 12:31 Order name: Basic Metabolic Panel; Complete Time: 13:28 [facility] 12/12 12:31 Order name: CBC with Diff; Complete Time: 13:28 7 12/12 12:31 Order name: ETOH Level; Complete Time: 13:28 7 12/12 12:31 Order name: Hepatic Function; Complete Time: 13:28 [facility] 12/12 12:31 Order name: PT-INR; Complete Time: 13:28 [facility] 12/12 12:31 Order name: Ptt, Activated; Complete Time: 13:28 7 12/12 12:31 Order name: Salicylate; Complete Time: 13:28 7 12/12 12:31 Order name: Urine Drug Screen; Complete Time: 13:28 7 12/12 12:31 Order name: EKG; Complete Time: 12:32 7 12/12 12:31 Order name: EKG - Nurse/Tech; Complete Time: 12:55 [facility] 12/12 12:31 Order name: IV Saline Lock; Complete Time: 12:55 [facility] 12/12 12:31 Order name: Labs collected and sent; Complete Time: 12:55 [facility] 12/12 12:31 Order name: Suicide Precautions; Complete Time: 12:55 [facility] 12/12 12:31 Order name: Suicide Screening ([place]); Complete Time: 12:55 [facility] EC:58 Rate is 69 beats/min. Rhythm is regular. QRS Merom is Normal. CO interval is normal at jh7 130 msec. QRS interval is normal at 80 msec. QT interval is normal at 384 msec. No Q waves. Clinical impression: NSR w/ Non-specific ST/T Changes. Administered Medications: 15:25 Drug: Nicotine Transdermal Patch 21 mg/24 hr 1 patches Transdermal once Route: mb9 Transdermal; Site: affected area; 15:51 Drug: Ativan IVP 1 mg IVP once Route: IVP; Site: right antecubital; mb9 Disposition: 18:54 Co-signature as Attending Physician, Robbin Farias MD I reviewed the patient's care rn provided by the Advanced Practice Provider and agree with the diagnosis and treatment plan. Disposition Summary: 12/12/22 15:22 Transfer Ordered Notes: Transfer Location: [place] [id number] Reason: Higher level of care [facility] Condition: Fair [facility] Problem: chronic [facility] Symptoms: are unchanged [facility] Accepting Physician: [facility](12/12/22 18:19) darling9 Diagnosis - Suicidal ideations [facility] Forms: - Medication Reconciliation Form [facility] - SBAR form [facility] Signatures: Dispatcher [employer] Robbin Miller MD MD rn Baxter, Heather, RN RN Cassandra Viera, MEDICATION ASSISTANT MEDICATION ASSISTANT [facility] Maggy Ortiz RN RN mb9 Corrections: (The following items were deleted from the chart) 18:19 15:22 [place] [address] mb9
[2022-12-12] MEDS ORDERED: NICOTINE 21 MG/PAT TD ONE (15:37)
[2022-12-12] MEDS ORDERED: LORazepam 2 MG/ML VIAL ONE (15:58)
[2022-12-12 18:32] VITALS: BP 138/91; TEMP 97.9; O2SAT 100
--- NOTE | 2022-12-15 12:23 | EKG ---
Test Date: 2022-12-12 Test Time: 12:58:50 Echocardiography Tech: ELZA MEASUREMENT RESULTS: Intervals: Rate: 69 IL: 130 QRSD: 80 QT: 384 QTc: 411 [place]: P: 74 IL: 130 QRS: 50 T: 64 INTERPRETIVE STATEMENTS: Normal sinus rhythm Nonspecific ST and T wave abnormality Abnormal ECG Compared to ECG 07/17/2012 10:43:20 ST (T wave) deviation now present Electronically Signed On 12-15-22 12:18:16 CDT by Antonio Hart
== END 2022-12-12 18:19 ==
LOC: ER 12:20
DX: R45.851 Suicidal ideations (principal); I10 Essential (primary) hypertension; Z85.841 Personal history of malignant neoplasm of brain
CPT/HCPCS: 36415; 80048; 80076; 80143; 80179; 80307; 82077; 85025; 85610; 85730; 93005; 96374; 99285

== ENCOUNTER 2024-03-14 15:00 | Emergency (ER) | payer OTHER ==
[2024-03-14] MEDS ORDERED: LIDOCAINE HCL JELLY 2% 6 ML SYRINGE TOP ONE (15:19)
[2024-03-14] MEDS ORDERED: LIDOCAINE 1% 20 ML MDV ONE (15:43)
--- NOTE | 2024-03-14 18:41 | ER ---
Nurse's Notes [facility] Jesus Manuel Name: Michael Soria Age: 58 yrs Sex: Male : 1965 Arrival Date: 03/14/2024 Time: 15:00 Bed 26 Private MD: Diagnosis: Other postprocedural complications and disorders of genitourinary system Presentation: 03/14 15:11 Chief complaint: Penis stuck in zipper. Coronavirus screen: At this time, the client hb does not indicate any symptoms associated with coronavirus-19. Ebola Screen: No symptoms or risks identified at this time. Initial Sepsis Screen: Does the patient meet any 2 criteria? No. Patient's initial sepsis screen is negative. Does the patient have a suspected source of infection? No. Patient's initial sepsis screen is negative. Risk Assessment: Do you want to hurt yourself or someone else? Patient reports no desire to harm self or others. Onset of symptoms was March 14, 2024. 15:11 Method Of Arrival: Ambulatory hb 15:11 Acuity: NANCY 3 hb Historical: - Allergies: 15:12 No Known Allergies; hb - PMHx: 15:12 GERD; Hypertension; hb - PSHx: 15:12 Brain; brain cancer; hb - Immunization history:: Adult Immunizations up to date. - Infectious Disease History:: Denies. Screenin:00 [facility] ED Fall Risk Assessment (Adult) History of falling in the last 3 months, jb4 including since admission No falls in past 3 months (0 pts) Confusion or Disorientation No (0 pts) Intoxicated or Sedated No (0 pts) Impaired Gait No (0 pts) Mobility Assist Device Used No (0 pt) Altered Elimination No (0 pt) Score/Fall Risk Level 0 - 2 = Low Risk Oriented to surroundings, Maintained a safe environment. Abuse screen: Denies threats or abuse. Nutritional screening: No deficits noted. Tuberculosis screening: No symptoms or risk factors identified. Assessment: 15:15 General: Appears in no apparent distress. comfortable, Behavior is calm, cooperative, jb4 appropriate for age. Pain: Denies pain. Neuro: Level of Consciousness is awake, alert, obeys commands, Oriented to person, place, time, situation. Cardiovascular: Patient's skin is warm and dry. Respiratory: Airway is patent Respiratory effort is even, unlabored, Respiratory pattern is regular, symmetrical. : Pt noted to have his foreskin stuck in his zipper. Derm: Skin is intact, Skin is pink, warm \T\ dry. 16:30 Reassessment: Patient appears in no apparent distress at this time. Patient and/or jb4 family updated on plan of care and expected duration. Pain level reassessed. Patient is alert, oriented x 3, equal unlabored respirations, skin warm/dry/pink. 17:30 Reassessment: Patient appears in no apparent distress at this time. Patient and/or jb4 family updated on plan of care and expected duration. Pain level reassessed. Patient is alert, oriented x 3, equal unlabored respirations, skin warm/dry/pink. 19:00 Reassessment: Patient appears in no apparent distress at this time. Patient and/or jb4 family updated on plan of care and expected duration. Pain level reassessed. Patient is alert, oriented x 3, equal unlabored respirations, skin warm/dry/pink. 20:00 Reassessment: Patient appears in no apparent distress at this time. Patient and/or jb4 family updated on plan of care and expected duration. Pain level reassessed. Patient is alert, oriented x 3, equal unlabored respirations, skin warm/dry/pink. Vital Signs: 15:11 BP 146 / 86; Pulse 88; Resp 16; Temp 97.1; Pulse Ox 100% ; hb 16:24 BP 168 / 103; Pulse 80; Resp 16; Pulse Ox 99% on R/A; jb4 19:05 BP 158 / 99; Pulse 77; Resp 16; Pulse Ox 98% on R/A; jb4 ED Course: 15:06 Patient arrived in ED. al6 15:08 Marcie Monet MD is Attending Physician. gb1 15:12 Triage completed. hb 15:13 Arm band placed on. hb 16:18 spoke with Dorcas at [facility] for initiation. bc6 20:00 Patient has correct armband on for positive identification. Bed in low position. Call jb4 light in reach. Side rails up X 1. Provided Education on: need for transfer. 20:00 No provider procedures requiring assistance completed. Patient did not have IV access jb4 during this emergency room visit. Administered Medications: 15:22 Drug: Lidocaine Mucous Membrane Gel 2 % 1 application Mucous Membrane once {Note: ss administered to penis by Dr. Monet.} Route: Mucous Membrane; Medication: 20:00 VIS not applicable for this client. jb4 Outcome: 18:40 ER care complete, transfer ordered by . stanley 20:00 Transferred by ground EMS to [facility], jb4 20:00 Condition: stable 20:00 Discharge instructions given to patient, Instructed on the need for transfer, Demonstrated understanding of instructions, 20:23 Patient left the ED. jb4 Signatures: Destiney Rios, Ciera Steward RN, RN RN Robby Del Valle RN RN jb4 Ruchi Estrada bc6 Marcie Monet MD MD gb1 Kylie Macdonald al6
--- NOTE | 2024-03-14 18:41 | EDPHYS ---
Physician Documentation [facility] Name: Michael Soria Age: 58 yrs Sex: Male : 1965 Arrival Date: 03/14/2024 Time: 15:00 Bed 26 Private MD: ED Physician Marcie Monet HPI: 03/14 18:41 This 58 yrs old Male presents to ER via Ambulatory with complaints of penile gb1 problem. 18:41 Pts foreskin stuck in his zipper of his jeans since yesterday at 0330 am. Pt has been gb1 urinating on himself due to being unable to free his foreskin. No history of anticoagulant.. Historical: - Allergies: 15:12 No Known Allergies; hb - PMHx: 15:12 GERD; Hypertension; hb - PSHx: 15:12 Brain; brain cancer; hb - Immunization history:: Adult Immunizations up to date. - Infectious Disease History:: Denies. Exam: 18:41 Constitutional: This is a well developed, well nourished patient who is awake, alert, gb1 and in no acute distress. Head/Face: Normocephalic, atraumatic. Male : pts foreskin stuck in zipper of blue jeans at underskin at 1800. Vital Signs: 15:11 BP 146 / 86; Pulse 88; Resp 16; Temp 97.1; Pulse Ox 100% ; hb 16:24 BP 168 / 103; Pulse 80; Resp 16; Pulse Ox 99% on R/A; jb4 19:05 BP 158 / 99; Pulse 77; Resp 16; Pulse Ox 98% on R/A; jb4 MDM: 15:34 Medical Screening Exam initiated gb1 18:41 Data reviewed: vital signs, nurses notes. ED course: 58-year-old male with penile gb1 foreskin stuck in the zipper of his blue jeans. I attempted to dislodge the foreskin after a penile block and topical viscous lidocaine without success. I discussed the case with Dr. Jimenez at [facility] and is excepted transfer. I discussed the case with accepting ER physician Dr. Amarjit Nunn.. Administered Medications: 15:22 Drug: Lidocaine Mucous Membrane Gel 2 % 1 application Mucous Membrane once {Note: ss administered to penis by Dr. Monet.} Route: Mucous Membrane; Disposition Summary: 03/14/24 18:40 Transfer Ordered Notes: Transfer Location: [facility] gb1 Reason: Higher level of care gb1 Condition: Stable gb1 Problem: new gb1 Symptoms: are unchanged gb1 Accepting Physician: Dr. Nunn(03/14/24 20:23) jb4 Diagnosis - Other postprocedural complications and disorders of genitourinary system gb1 Forms: - Medication Reconciliation Form gb1 - SBAR form gb1 Signatures: Destiney Rios RN RN Ciera Barker RN RN Robby Del Valle RN RN jb4 Marcie Monet MD MD gb1 Corrections: (The following items were deleted from the chart) 20:23 18:40 Dr. Nunn gb1 jb4
[2024-03-14 20:32] VITALS: TEMP 97.1
[2024-03-14 20:35] VITALS: BP 158/99; O2SAT 98
== END 2024-03-14 20:23 | disposition short-term general hospital (02) ==
LOC: ER 15:00
DX: S39.848A Other specified injuries of external genitals, initial encounter (principal); S30.842A External constriction of penis, initial encounter; W49.09XA Other specified item causing external constriction, initial encounter; Y93.9 Activity, unspecified; Y92.9 Unspecified place or not applicable
CPT/HCPCS: 99285; J2003